=== PATIENT | female | born 1945 | race Caucasian/White ===

== ENCOUNTER 2017-07-25 08:10 | Inpatient (IN) | payer MEDICARE, MEDICAID ==
[2017-07-25] VITALS (11 sets, daily range): BP systolic 9–109; BP diastolic 50–77
[~2017-07-25] VITALS: Ht 172.7 cm; Wt 56.1 kg
[2017-07-25] MEDS: K, MAG and/or Phos replacement - Verify level? MC SCH (08:00)
[~2017-07-25 08:10] MED LIST: DULO-31 PO; MESA400C2 PO; NITR100C6 PO; SULF500T59 PO
[2017-07-25] MEDS ORDERED: normal saline 1000ML IV soln IVB ONE ×2 (08:45→11:05)
[2017-07-25 09:14] LABS: INR 1.1 INR; PARTIAL THROMBOPLASTIN TIME 36 SECONDS (22-32); PROTHROMBIN TIME 11.8 SECONDS (9.0-12.0)
[2017-07-25 09:20] LABS: ANION GAP 17 (8-16); CHLORIDE 100 MMOL/L (99-107); GLUCOSE 91 MG/DL (70-104); POTASSIUM 3.5 MMOL/L (3.5-5.1); SODIUM 134 MMOL/L (135-145); TOTAL CARBON DIOXIDE 16.7 MMOL/L (24-32)
[2017-07-25 09:21] LABS: ALANINE AMINOTRANSFERASE 56 U/L (12-78); ALBUMIN 2.5 G/DL (3.4-5.0); ALBUMIN/GLOBULIN RATIO 0.6 (1.1-1.5); ALKALINE PHOSPHATASE 166 IU/L (46-116); ASPARTATE AMINO TRANSFERASE 77 U/L (10-37); BILIRUBIN,TOTAL 0.6 MG/DL (0.1-1.0); BLOOD UREA NITROGEN 71 MG/DL (7-18); BUN/CREATININE RATIO 14.8 (6.6-38.0); CALCIUM 7.9 MG/DL (8.5-10.1); CREATININE 4.79 MG/DL (0.40-0.90); LIPASE 101 U/L (73-393); MAGNESIUM 1.8 MG/DL (1.5-2.4); TOTAL PROTEIN 6.6 G/DL (6.4-8.2); eGFR 9 ML/MIN
[2017-07-25 09:38] LABS: CLARITY,URINE CLOUDY (Clear); COLOR,URINE YELLOW (Yellow); GLUCOSE, URINE NEGATIVE (Neg); KETONES,URINE NEGATIVE (Neg); LEUKOCYTE ESTERASE ,URINE LARGE (Neg); NITRITES, URINE NEGATIVE (Neg); OCCULT BLOOD,URINE LARGE (Neg); PH,URINE 5.5 (4.8-8.0); PROTEIN,URINE 100 mg/dl (Neg); UROBILINOGEN,URINE 0.2 E.U/dL (0.2-1.0)
[2017-07-25 09:42] LABS: UA COLLECTION TYPE FOLEY CATH
[2017-07-25 09:43] LABS: WBC,URINE TNTC /HPF (0-4)
[2017-07-25 09:44] LABS: BACTERIA,URINE 4+ /HPF (Neg)
[2017-07-25 09:46] LABS: MUCUS STRANDS FEW /LPF (Neg); SQUAMOUS EPITHELIAL CELL,UR FEW /LPF (FEW)
[2017-07-25 09:47] LABS: HYALINE CASTS 0-3 /LPF (NEGATIVE); RENAL CELLS, URINE MODERATE /HPF
[2017-07-25 09:48] LABS: CELLULAR CAST 0-4 /LPF (NEGATIVE)
[2017-07-25 09:53] LABS: BASOPHILS % (AUTO) 0 % (0-1); EOSINOPHILS % (AUTO) 0.1 % (0-6); HEMATOCRIT 28.2 % (35.0-45.0); HEMOGLOBIN 9.8 g/dl (12.0-16.0); LYMPHOCYTES # (AUTO) 0.5 X10'3 (1.1-4.8); LYMPHOCYTES % (AUTO) 2.7 % (21-51); MEAN CORPUSCULAR HEMOGLOBIN 28.9 PG (27.0-31.0); MEAN CORPUSCULAR HGB CONC 34.7 % (33.0-36.5); MEAN CORPUSCULAR VOLUME 83.1 FL (78-98); MEAN PLATELET VOLUME 8.1 FL (7.4-10.4); MONOCYTES # (AUTO) 1.1 X10'3 (0-0.9); MONOCYTES % (AUTO) 5.6 % (2-12); NEUTROPHILS # (AUTO) 18.7 X10'3 (1.8-7.7); NEUTROPHILS % (AUTO) 91.6 % (42-75); PLATELET COUNT 103 X10'3 (140-440); RED BLOOD COUNT 3.39 X10'6 (4.20-5.60); RED CELL DISTRIBUTION WIDTH 16.6 % (11.5-14.5); WHITE BLOOD COUNT 20.4 X10'3 (4.5-11.0)
[2017-07-25 10:07] LABS: ANISOCYTOSIS 1+; PLATELET ESTIMATE DECREASED; TOTAL CELLS COUNTED 100
[2017-07-25 10:08] LABS: BURR CELLS 3+; SCHISTOCYTES FEW
[2017-07-25 10:09] LABS: TOXIC GRANULATION 2+
[2017-07-25] MEDS ORDERED: piperacillin/tazo 3.375gm/50ml 50 ML IV ONE ×2 (11:05→21:00)
[2017-07-25] MEDS ORDERED: CefTRIAXone 2gm/NS 100ml IVPB 100 ML IV ONE (11:05)
[2017-07-25] MEDS ORDERED: magnesium 2GM in 50ml NS 50 ML IV PRN (11:35)
[2017-07-25] MEDS ORDERED: ondansetron/PF 4mg/2ml inj IV PRN (11:35)
[2017-07-25] MEDS ORDERED: acetaminophen 325mg tablet PO PRN (11:35)
[2017-07-25] MEDS ORDERED: potassium Cl 20 mEq SR tablet PO PRN (11:35)
[2017-07-25] MEDS ORDERED: magnesium 4gm in 100ml NS 100 ML IV PRN (11:35)
[2017-07-25] MEDS ORDERED: magnesium hydroxide 30ml (MOM) UD suspension PO PRN (11:35)
[2017-07-25] MEDS ORDERED: magnesium Cl slow-release 64mg tablet PO PRN (11:35)
[2017-07-25] MEDS ORDERED: BUDE3CAP8 PO (12:24)
[2017-07-25] MEDS ORDERED: POLY255P2 PO (12:24)
[2017-07-25] MEDS ORDERED: LOPE2CAP PO (12:24)
[2017-07-25] MEDS ORDERED: aspirin 81mg tab.chew PO ONE (12:25)
[2017-07-25] MEDS: pantoprazole 40 MG vial IV SCH (15:14)
[2017-07-25] MEDS: normal saline 1000ml 1,000 ML IV SCH (15:18)
[2017-07-25] MEDS: heparin, porcine 5000 units/ml vial SQ SCH (16:00)
[2017-07-25] MEDS ORDERED: albumin (human) 25% 100 ML IV solution IV ONE (16:10)
[2017-07-25] MEDS ORDERED: diphenhydrAMINE 50 mg/ml inj IV ONE (20:40)
[2017-07-25] MEDS ORDERED: vancomycin/NS 1 GM ADD-VANTAGE 250 ML IV PRN (21:10)
[2017-07-25] MEDS ORDERED: piperacillin-tazo 2.25gm/50ml 50 ML IV SCH (21:10)
[2017-07-25] MEDS: piperacillin-tazo 2.25gm/50ml 50 ML IV SCH (21:53)
[2017-07-25] MEDS ORDERED: vancomycin/NS 1 GM ADD-VANTAGE 250 ML IV ONE (22:00)
[2017-07-26] VITALS (27 sets, daily range): BP systolic 87–137; BP diastolic 44–89
[2017-07-26] MEDS: normal saline 1000ml 1,000 ML IV SCH ×3 (00:51→17:26)
[2017-07-26] MEDS: heparin, porcine 5000 units/ml vial SQ SCH ×3 (00:58→20:58)
[2017-07-26] MEDS: piperacillin-tazo 2.25gm/50ml 50 ML IV SCH ×4 (02:51→20:25)
[2017-07-26] MEDS: VANCOMYCIN LEVEL IV SCH (03:00)
[2017-07-26 03:04] LABS: BASOPHILS % (AUTO) 0 % (0-1); EOSINOPHILS # (AUTO) 0.1 X10'3 (0-0.9); HEMATOCRIT 27.5 % (35.0-45.0); HEMOGLOBIN 9.4 g/dl (12.0-16.0); LYMPHOCYTES # (AUTO) 0.4 X10'3 (1.1-4.8); LYMPHOCYTES % (AUTO) 2.7 % (21-51); MEAN CORPUSCULAR HEMOGLOBIN 28.7 PG (27.0-31.0); MEAN CORPUSCULAR VOLUME 84.4 FL (78-98); MEAN PLATELET VOLUME 8.1 FL (7.4-10.4); MONOCYTES # (AUTO) 0.5 X10'3 (0-0.9); MONOCYTES % (AUTO) 3.5 % (2-12); NEUTROPHILS # (AUTO) 13.3 X10'3 (1.8-7.7); NEUTROPHILS % (AUTO) 92.8 % (42-75); PLATELET COUNT 108 X10'3 (140-440); RED BLOOD COUNT 3.26 X10'6 (4.20-5.60); RED CELL DISTRIBUTION WIDTH 16.7 % (11.5-14.5); WHITE BLOOD COUNT 14.4 X10'3 (4.5-11.0)
[2017-07-26 03:20] LABS: ALANINE AMINOTRANSFERASE 40 U/L (12-78); ALBUMIN 2.2 G/DL (3.4-5.0); ALBUMIN/GLOBULIN RATIO 0.6 (1.1-1.5); ALKALINE PHOSPHATASE 128 IU/L (46-116); ANION GAP 21 (8-16); ASPARTATE AMINO TRANSFERASE 42 U/L (10-37); BILIRUBIN,TOTAL 0.5 MG/DL (0.1-1.0); BLOOD UREA NITROGEN 66 MG/DL (7-18); BUN/CREATININE RATIO 14.9 (6.6-38.0); CALCIUM 7.3 MG/DL (8.5-10.1); CHLORIDE 110 MMOL/L (99-107); CREATININE 4.43 MG/DL (0.40-0.90); GLUCOSE 100 MG/DL (70-104); MAGNESIUM 1.7 MG/DL (1.5-2.4); PHOSPHORUS 4.2 MG/DL (2.3-4.5); SODIUM 143 MMOL/L (135-145); TOTAL PROTEIN 5.6 G/DL (6.4-8.2); VANCOMYCIN,RANDOM 19.3 UG/ML; eGFR 10 ML/MIN
[2017-07-26 03:24] LABS: POTASSIUM 2.8 MMOL/L (3.5-5.1); TOTAL CARBON DIOXIDE 11.9 MMOL/L (24-32)
[2017-07-26] MEDS ORDERED: potassium Cl 40MEQ/250ML bag 250 ML IV PRN (03:35)
[2017-07-26] MEDS ORDERED: potassium Cl 40MEQ/250ML bag 500 ML IV ONE (04:11)
[2017-07-26 04:19] LABS: TOTAL CELLS COUNTED 100
[2017-07-26 04:20] LABS: ANISOCYTOSIS 1+; BURR CELLS 3+; PLATELET ESTIMATE DECREASED
[2017-07-26] MEDS: potassium Cl 40MEQ/250ML bag 250 ML IV PRN ×2 (04:20→07:13)
[2017-07-26 04:21] LABS: TOXIC GRANULATION 2+
[2017-07-26 07:26] LABS: OXYGEN SATURATION (MIXED VEN) 77.6 % (60-80); PO2 MIXED VENOUS (TEMP COR) 43.5 mmHg (35-46)
[2017-07-26] MEDS: K, MAG and/or Phos replacement - Verify level? MC SCH (08:00)
[2017-07-26] MEDS: pantoprazole 40 MG vial IV SCH (09:20)
[2017-07-26] MEDS ORDERED: dextrose 50%-water 50ml dispensing syringe IV PRN ×2 (12:50)
[2017-07-26] MEDS ORDERED: glucagon, human recombinant 1mg kit SUBCUT PRN (12:50)
[2017-07-26] MEDS ORDERED: dextrose ORAL solution 15 GM/59 ML bottle PO PRN ×2 (12:50)
[2017-07-26] MEDS ORDERED: iohexol 300 MG/1 ML 50ml polymer ONE (13:03)
[2017-07-26 13:16] LABS: PARTIAL THROMBOPLASTIN TIME 37 SECONDS (22-32)
[2017-07-26] MEDS ORDERED: ringers solution, lacted 1,000 ML IV SCH ×2 (14:34→16:51)
[2017-07-26] MEDS ORDERED: hydrALAZINE 20mg/ml inj. IV PRN (14:35)
[2017-07-26] MEDS ORDERED: fentaNYL/PF 50MCG/1 ML 2ML syringe IV PRN ×2 (14:35)
[2017-07-26] MEDS ORDERED: ondansetron/PF 4mg/2ml inj IV PRN ×2 (14:35→16:55)
[2017-07-26] MEDS ORDERED: morphine 2 MG/ML inj. syringe IV PRN ×4 (14:35→16:55)
[2017-07-26] MEDS ORDERED: labetalol 5mg/ml 20ml inj. IV PRN (14:35)
[2017-07-26] MEDS ORDERED: desflurane 240ml liquid inh. IH ONE (15:45)
[2017-07-26] MEDS ORDERED: fentaNYL/PF 50MCG/1 ML 2ML syringe ONE (16:04)
[2017-07-26] MEDS ORDERED: midazolam 2 mg/2 ml injection ONE (16:04)
[2017-07-26] MEDS ORDERED: propofol inj 20 ML IV ONE (16:05)
[2017-07-26] MEDS ORDERED: LIDOcaine 2% (20mg/ml) 5ml vial ONE (16:05)
[2017-07-26] MEDS ORDERED: meperidine/PF 50mg/ml syringe IV PRN ×3 (16:55)
[2017-07-26] MEDS ORDERED: proCHLORperazine 10 MG/2 ml inj IV PRN (16:55)
[2017-07-26] MEDS: lactobacillus rhamnosus 10,000 MMU CELLS/CAPSULE PO SCH (17:30)
[2017-07-27] VITALS (24 sets, daily range): BP systolic 96–122; BP diastolic 64–86
[2017-07-27] MEDS: piperacillin-tazo 2.25gm/50ml 50 ML IV SCH ×2 (02:29→07:56)
[2017-07-27] MEDS: VANCOMYCIN LEVEL IV SCH (03:00)
[2017-07-27 03:38] LABS: BASOPHILS % (AUTO) 0 % (0-1); EOSINOPHILS # (AUTO) 0.2 X10'3 (0-0.9); EOSINOPHILS % (AUTO) 1.4 % (0-6); HEMATOCRIT 26.8 % (35.0-45.0); HEMOGLOBIN 9.1 g/dl (12.0-16.0); LYMPHOCYTES # (AUTO) 0.6 X10'3 (1.1-4.8); LYMPHOCYTES % (AUTO) 5.9 % (21-51); MEAN CORPUSCULAR HEMOGLOBIN 28.4 PG (27.0-31.0); MEAN CORPUSCULAR HGB CONC 33.7 % (33.0-36.5); MEAN CORPUSCULAR VOLUME 84.1 FL (78-98); MEAN PLATELET VOLUME 8.5 FL (7.4-10.4); MONOCYTES # (AUTO) 0.4 X10'3 (0-0.9); MONOCYTES % (AUTO) 3.4 % (2-12); NEUTROPHILS # (AUTO) 9.5 X10'3 (1.8-7.7); NEUTROPHILS % (AUTO) 89.3 % (42-75); PLATELET COUNT 112 X10'3 (140-440); RED BLOOD COUNT 3.19 X10'6 (4.20-5.60); RED CELL DISTRIBUTION WIDTH 16.4 % (11.5-14.5); WHITE BLOOD COUNT 10.6 X10'3 (4.5-11.0)
[2017-07-27 03:59] LABS: ALANINE AMINOTRANSFERASE 35 U/L (12-78); ALBUMIN 1.9 G/DL (3.4-5.0); ALBUMIN/GLOBULIN RATIO 0.5 (1.1-1.5); ALKALINE PHOSPHATASE 205 IU/L (46-116); ANION GAP 18 (8-16); ASPARTATE AMINO TRANSFERASE 25 U/L (10-37); BILIRUBIN,TOTAL 0.6 MG/DL (0.1-1.0); BLOOD UREA NITROGEN 58 MG/DL (7-18); BUN/CREATININE RATIO 14.1 (6.6-38.0); CALCIUM 7.5 MG/DL (8.5-10.1); CHLORIDE 112 MMOL/L (99-107); CREATININE 4.11 MG/DL (0.40-0.90); GLUCOSE 104 MG/DL (70-104); MAGNESIUM 1.7 MG/DL (1.5-2.4); PHOSPHORUS 4.1 MG/DL (2.3-4.5); POTASSIUM 3.3 MMOL/L (3.5-5.1); SODIUM 144 MMOL/L (135-145); TOTAL PROTEIN 5.5 G/DL (6.4-8.2); eGFR 11 ML/MIN
[2017-07-27 04:11] LABS: TOTAL CARBON DIOXIDE 14.3 MMOL/L (24-32)
[2017-07-27] MEDS: normal saline 1000ml 1,000 ML IV SCH (07:28)
[2017-07-27] MEDS: pantoprazole 40 MG vial IV SCH (07:55)
[2017-07-27] MEDS: heparin, porcine 5000 units/ml vial SQ SCH ×2 (07:55→19:23)
[2017-07-27] MEDS: lactobacillus rhamnosus 10,000 MMU CELLS/CAPSULE PO SCH ×2 (07:56→19:21)
[2017-07-27] MEDS: K, MAG and/or Phos replacement - Verify level? MC SCH (08:00)
[2017-07-27] MEDS ORDERED: vancomycin/NS 1 GM ADD-VANTAGE 250 ML IV ONE (09:25)
[2017-07-27] MEDS ORDERED: levoFLOXACIN-Levaquin 750MG/D5 150 ML IV ONE (12:30)
[2017-07-27] MEDS: acetaminophen 325mg tablet PO PRN ×2 (13:15→19:21)
[2017-07-28] VITALS (24 sets, daily range): BP systolic 106–136; BP diastolic 63–93
[2017-07-28] MEDS: normal saline 1000ml 1,000 ML IV SCH (01:53)
[2017-07-28 03:48] LABS: MEAN CORPUSCULAR HEMOGLOBIN 28.7 PG (27.0-31.0); MONOCYTES # (AUTO) 0.8 X10'3 (0-0.9)
[2017-07-28 03:53] LABS: ALANINE AMINOTRANSFERASE 34 U/L (12-78); ALBUMIN 1.9 G/DL (3.4-5.0); ALBUMIN/GLOBULIN RATIO 0.5 (1.1-1.5); ALKALINE PHOSPHATASE 194 IU/L (46-116); ANION GAP 14 (8-16); ASPARTATE AMINO TRANSFERASE 18 U/L (10-37); BASOPHILS % (AUTO) 0.1 % (0-1); BILIRUBIN,TOTAL 0.5 MG/DL (0.1-1.0); BLOOD UREA NITROGEN 43 MG/DL (7-18); BUN/CREATININE RATIO 13.2 (6.6-38.0); CALCIUM 7.7 MG/DL (8.5-10.1); CHLORIDE 113 MMOL/L (99-107); CREATININE 3.26 MG/DL (0.40-0.90); EOSINOPHILS # (AUTO) 0.6 X10'3 (0-0.9); EOSINOPHILS % (AUTO) 3.9 % (0-6); GLUCOSE 104 MG/DL (70-104); HEMATOCRIT 29.6 % (35.0-45.0); HEMOGLOBIN 10.1 g/dl (12.0-16.0); LYMPHOCYTES # (AUTO) 0.7 X10'3 (1.1-4.8); LYMPHOCYTES % (AUTO) 4.3 % (21-51); MAGNESIUM 1.4 MG/DL (1.5-2.4); MEAN CORPUSCULAR HGB CONC 34.3 % (33.0-36.5); MEAN CORPUSCULAR VOLUME 83.7 FL (78-98); MEAN PLATELET VOLUME 8.5 FL (7.4-10.4); MONOCYTES % (AUTO) 4.9 % (2-12); NEUTROPHILS # (AUTO) 13.2 X10'3 (1.8-7.7); NEUTROPHILS % (AUTO) 86.8 % (42-75); PHOSPHORUS 3.8 MG/DL (2.3-4.5); PLATELET COUNT 145 X10'3 (140-440); POTASSIUM 3.4 MMOL/L (3.5-5.1); RED BLOOD COUNT 3.53 X10'6 (4.20-5.60); RED CELL DISTRIBUTION WIDTH 16.7 % (11.5-14.5); SODIUM 142 MMOL/L (135-145); TOTAL CARBON DIOXIDE 15.1 MMOL/L (24-32); TOTAL PROTEIN 5.8 G/DL (6.4-8.2); WHITE BLOOD COUNT 15.2 X10'3 (4.5-11.0); eGFR 14 ML/MIN
[2017-07-28] MEDS: potassium Cl 20 mEq SR tablet PO PRN (04:49)
[2017-07-28] MEDS: pantoprazole 40mg Tablet.DR PO SCH (08:21)
[2017-07-28] MEDS: heparin, porcine 5000 units/ml vial SQ SCH ×2 (08:21→20:28)
[2017-07-28] MEDS: lactobacillus rhamnosus 10,000 MMU CELLS/CAPSULE PO SCH ×2 (08:21→18:41)
[2017-07-28] MEDS ORDERED: temazepam 15mg capsule PO ONE (21:00)
[2017-07-29] VITALS (15 sets, daily range): BP systolic 104–132; BP diastolic 69–93
[2017-07-29 05:27] LABS: BASOPHILS % (AUTO) 0.1 % (0-1); EOSINOPHILS # (AUTO) 0.3 X10'3 (0-0.9); EOSINOPHILS % (AUTO) 2.4 % (0-6); HEMATOCRIT 31.7 % (35.0-45.0); HEMOGLOBIN 10.8 g/dl (12.0-16.0); LYMPHOCYTES # (AUTO) 0.9 X10'3 (1.1-4.8); LYMPHOCYTES % (AUTO) 6.8 % (21-51); MEAN CORPUSCULAR HEMOGLOBIN 28.4 PG (27.0-31.0); MEAN CORPUSCULAR VOLUME 83.4 FL (78-98); MEAN PLATELET VOLUME 8.6 FL (7.4-10.4); MONOCYTES # (AUTO) 0.7 X10'3 (0-0.9); MONOCYTES % (AUTO) 5.2 % (2-12); NEUTROPHILS # (AUTO) 11.8 X10'3 (1.8-7.7); NEUTROPHILS % (AUTO) 85.5 % (42-75); PLATELET COUNT 186 X10'3 (140-440); RED CELL DISTRIBUTION WIDTH 16.5 % (11.5-14.5); WHITE BLOOD COUNT 13.8 X10'3 (4.5-11.0)
[2017-07-29 06:48] LABS: ALANINE AMINOTRANSFERASE 36 U/L (12-78); ALBUMIN 2.3 G/DL (3.4-5.0); ALBUMIN/GLOBULIN RATIO 0.6 (1.1-1.5); ALKALINE PHOSPHATASE 174 IU/L (46-116); ANION GAP 16 (8-16); ASPARTATE AMINO TRANSFERASE 20 U/L (10-37); BILIRUBIN,TOTAL 0.4 MG/DL (0.1-1.0); BLOOD UREA NITROGEN 37 MG/DL (7-18); BUN/CREATININE RATIO 12.6 (6.6-38.0); CALCIUM 7.8 MG/DL (8.5-10.1); CHLORIDE 110 MMOL/L (99-107); CREATININE 2.93 MG/DL (0.40-0.90); GLUCOSE 101 MG/DL (70-104); MAGNESIUM 1.3 MG/DL (1.5-2.4); PHOSPHORUS 3.9 MG/DL (2.3-4.5); POTASSIUM 3.4 MMOL/L (3.5-5.1); SODIUM 141 MMOL/L (135-145); TOTAL CARBON DIOXIDE 15.5 MMOL/L (24-32); TOTAL PROTEIN 6.3 G/DL (6.4-8.2); eGFR 16 ML/MIN
[2017-07-29] MEDS: K, MAG and/or Phos replacement - Verify level? MC SCH ×2 (06:48→08:00)
[2017-07-29] MEDS: levoFLOXACIN-Levaquin 500mg/D5 100 ML IV SCH (08:47)
[2017-07-29] MEDS: potassium Cl 20 mEq SR tablet PO PRN ×3 (08:47→19:36)
[2017-07-29] MEDS: lactobacillus rhamnosus 10,000 MMU CELLS/CAPSULE PO SCH ×2 (08:47→17:04)
[2017-07-29] MEDS: heparin, porcine 5000 units/ml vial SQ SCH ×2 (08:48→19:30)
[2017-07-29] MEDS: pantoprazole 40mg Tablet.DR PO SCH (08:58)
[2017-07-29] MEDS: acetaminophen 325mg tablet PO PRN ×2 (08:59→17:11)
[2017-07-29] MEDS ORDERED: magnesium 2GM in 50ml NS 50 ML IV PRN (09:25)
[2017-07-29] MEDS ORDERED: magnesium 4gm in 100ml NS 100 ML IV PRN (09:25)
[2017-07-29] MEDS ORDERED: POTASSIUM 40MEQ/500ML NS ***PERIPHERAL LINE REPLACE IV PRN (14:40)
[2017-07-30] VITALS: BP 121/76
[2017-07-30 04:46] LABS: BASOPHILS % (AUTO) 0.2 % (0-1); EOSINOPHILS # (AUTO) 0.3 X10'3 (0-0.9); EOSINOPHILS % (AUTO) 2.5 % (0-6); HEMATOCRIT 31.3 % (35.0-45.0); HEMOGLOBIN 10.6 g/dl (12.0-16.0); LYMPHOCYTES # (AUTO) 0.9 X10'3 (1.1-4.8); LYMPHOCYTES % (AUTO) 6.7 % (21-51); MEAN CORPUSCULAR HEMOGLOBIN 28.4 PG (27.0-31.0); MEAN CORPUSCULAR HGB CONC 33.7 % (33.0-36.5); MEAN CORPUSCULAR VOLUME 84.2 FL (78-98); MONOCYTES # (AUTO) 0.6 X10'3 (0-0.9); MONOCYTES % (AUTO) 4.5 % (2-12); NEUTROPHILS # (AUTO) 11.9 X10'3 (1.8-7.7); NEUTROPHILS % (AUTO) 86.1 % (42-75); PLATELET COUNT 275 X10'3 (140-440); RED BLOOD COUNT 3.72 X10'6 (4.20-5.60); RED CELL DISTRIBUTION WIDTH 16.4 % (11.5-14.5); WHITE BLOOD COUNT 13.8 X10'3 (4.5-11.0)
[2017-07-30 05:09] LABS: ALANINE AMINOTRANSFERASE 39 U/L (12-78); ALBUMIN 2.5 G/DL (3.4-5.0); ALBUMIN/GLOBULIN RATIO 0.6 (1.1-1.5); ALKALINE PHOSPHATASE 158 IU/L (46-116); ANION GAP 16 (8-16); ASPARTATE AMINO TRANSFERASE 27 U/L (10-37); BILIRUBIN,TOTAL 0.3 MG/DL (0.1-1.0); BLOOD UREA NITROGEN 29 MG/DL (7-18); BUN/CREATININE RATIO 11.3 (6.6-38.0); CALCIUM 8.4 MG/DL (8.5-10.1); CHLORIDE 110 MMOL/L (99-107); CREATININE 2.57 MG/DL (0.40-0.90); GLUCOSE 111 MG/DL (70-104); MAGNESIUM 2.9 MG/DL (1.5-2.4); PHOSPHORUS 3.9 MG/DL (2.3-4.5); POTASSIUM 4.1 MMOL/L (3.5-5.1); SODIUM 142 MMOL/L (135-145); TOTAL CARBON DIOXIDE 16.3 MMOL/L (24-32); TOTAL PROTEIN 6.7 G/DL (6.4-8.2); eGFR 18 ML/MIN
[2017-07-30 07:00] VITALS: BP 110/71
[2017-07-30] MEDS: acetaminophen 325mg tablet PO PRN ×3 (07:33→21:32)
[2017-07-30] MEDS: pantoprazole 40mg Tablet.DR PO SCH (07:34)
[2017-07-30] MEDS: lactobacillus rhamnosus 10,000 MMU CELLS/CAPSULE PO SCH ×2 (07:34→16:52)
[2017-07-30] MEDS: heparin, porcine 5000 units/ml vial SQ SCH ×2 (07:34→19:31)
[2017-07-30] MEDS: K, MAG and/or Phos replacement - Verify level? MC SCH (07:40)
[2017-07-30 11:00] VITALS: BP 113/73
[2017-07-30 19:00] VITALS: BP 115/75
[2017-07-30] MEDS ORDERED: temazepam 15mg capsule PO PRN (20:55)
[2017-07-31] VITALS: BP 103/63
[2017-07-31 06:47] LABS: BASOPHILS % (AUTO) 0.3 % (0-1); EOSINOPHILS # (AUTO) 0.4 X10'3 (0-0.9); EOSINOPHILS % (AUTO) 3.1 % (0-6); HEMATOCRIT 31.6 % (35.0-45.0); HEMOGLOBIN 10.8 g/dl (12.0-16.0); LYMPHOCYTES # (AUTO) 1.3 X10'3 (1.1-4.8); LYMPHOCYTES % (AUTO) 9.7 % (21-51); MEAN CORPUSCULAR HEMOGLOBIN 28.5 PG (27.0-31.0); MEAN CORPUSCULAR VOLUME 83.9 FL (78-98); MEAN PLATELET VOLUME 7.5 FL (7.4-10.4); MONOCYTES # (AUTO) 0.6 X10'3 (0-0.9); MONOCYTES % (AUTO) 4.5 % (2-12); NEUTROPHILS # (AUTO) 10.6 X10'3 (1.8-7.7); NEUTROPHILS % (AUTO) 82.4 % (42-75); PLATELET COUNT 368 X10'3 (140-440); RED BLOOD COUNT 3.77 X10'6 (4.20-5.60); RED CELL DISTRIBUTION WIDTH 16.7 % (11.5-14.5); WHITE BLOOD COUNT 12.9 X10'3 (4.5-11.0)
[2017-07-31 07:10] LABS: ALANINE AMINOTRANSFERASE 39 U/L (12-78); ALBUMIN 2.7 G/DL (3.4-5.0); ALBUMIN/GLOBULIN RATIO 0.6 (1.1-1.5); ALKALINE PHOSPHATASE 143 IU/L (46-116); ANION GAP 14 (8-16); ASPARTATE AMINO TRANSFERASE 18 U/L (10-37); BILIRUBIN,TOTAL 0.4 MG/DL (0.1-1.0); BLOOD UREA NITROGEN 25 MG/DL (7-18); BUN/CREATININE RATIO 11.1 (6.6-38.0); CALCIUM 8.2 MG/DL (8.5-10.1); CHLORIDE 110 MMOL/L (99-107); CREATININE 2.25 MG/DL (0.40-0.90); GLUCOSE 106 MG/DL (70-104); PHOSPHORUS 4.1 MG/DL (2.3-4.5); POTASSIUM 3.7 MMOL/L (3.5-5.1); SODIUM 141 MMOL/L (135-145); TOTAL CARBON DIOXIDE 16.8 MMOL/L (24-32); eGFR 21 ML/MIN
[2017-07-31 07:30] VITALS: BP 97/64
[2017-07-31] MEDS: levoFLOXACIN-Levaquin 500mg/D5 100 ML IV SCH (08:00)
[2017-07-31] MEDS: K, MAG and/or Phos replacement - Verify level? MC SCH (08:00)
[2017-07-31] MEDS: heparin, porcine 5000 units/ml vial SQ SCH ×2 (08:00→20:00)
[2017-07-31] MEDS: lactobacillus rhamnosus 10,000 MMU CELLS/CAPSULE PO SCH ×2 (10:01→17:56)
[2017-07-31] MEDS: pantoprazole 40mg Tablet.DR PO SCH (10:02)
[2017-07-31 11:00] VITALS: BP 103/66
[2017-07-31 13:14] LABS: C DIFFICILE TOXINS A&B NEGATIVE (Neg)
[2017-07-31 13:15] LABS: C DIFF ANTIGEN NEGATIVE (NEGATIVE); C DIFF SPECIMEN=DIARRHEA? ACCEPTABLE
[2017-07-31 19:00] VITALS: BP 107/68
[2017-08-01] VITALS: BP 102/65
[2017-08-01 04:00] VITALS: BP 108/69
[2017-08-01 05:14] LABS: BASOPHILS % (AUTO) 0.1 % (0-1); EOSINOPHILS # (AUTO) 0.4 X10'3 (0-0.9); EOSINOPHILS % (AUTO) 3.7 % (0-6); HEMATOCRIT 28.7 % (35.0-45.0); HEMOGLOBIN 9.8 g/dl (12.0-16.0); LYMPHOCYTES # (AUTO) 1.2 X10'3 (1.1-4.8); LYMPHOCYTES % (AUTO) 10.3 % (21-51); MEAN CORPUSCULAR HEMOGLOBIN 28.6 PG (27.0-31.0); MEAN CORPUSCULAR HGB CONC 34.1 % (33.0-36.5); MEAN CORPUSCULAR VOLUME 83.8 FL (78-98); MEAN PLATELET VOLUME 7.6 FL (7.4-10.4); MONOCYTES # (AUTO) 0.6 X10'3 (0-0.9); MONOCYTES % (AUTO) 5.2 % (2-12); NEUTROPHILS # (AUTO) 9.5 X10'3 (1.8-7.7); NEUTROPHILS % (AUTO) 80.7 % (42-75); PLATELET COUNT 360 X10'3 (140-440); RED BLOOD COUNT 3.42 X10'6 (4.20-5.60); WHITE BLOOD COUNT 11.8 X10'3 (4.5-11.0)
[2017-08-01 05:41] LABS: ALANINE AMINOTRANSFERASE 32 U/L (12-78); ALBUMIN 2.5 G/DL (3.4-5.0); ALBUMIN/GLOBULIN RATIO 0.6 (1.1-1.5); ALKALINE PHOSPHATASE 123 IU/L (46-116); ANION GAP 14 (8-16); ASPARTATE AMINO TRANSFERASE 15 U/L (10-37); BILIRUBIN,TOTAL 0.3 MG/DL (0.1-1.0); BLOOD UREA NITROGEN 22 MG/DL (7-18); BUN/CREATININE RATIO 10.9 (6.6-38.0); CALCIUM 7.8 MG/DL (8.5-10.1); CHLORIDE 110 MMOL/L (99-107); CREATININE 2.01 MG/DL (0.40-0.90); GLUCOSE 94 MG/DL (70-104); MAGNESIUM 1.6 MG/DL (1.5-2.4); PHOSPHORUS 3.9 MG/DL (2.3-4.5); POTASSIUM 3.9 MMOL/L (3.5-5.1); SODIUM 140 MMOL/L (135-145); TOTAL CARBON DIOXIDE 15.9 MMOL/L (24-32); TOTAL PROTEIN 6.5 G/DL (6.4-8.2); eGFR 24 ML/MIN
[2017-08-01 07:33] VITALS: BP 110/71
[2017-08-01] MEDS: K, MAG and/or Phos replacement - Verify level? MC SCH (08:00)
[2017-08-01] MEDS: heparin, porcine 5000 units/ml vial SQ SCH ×2 (08:00→20:00)
[2017-08-01] MEDS: pantoprazole 40mg Tablet.DR PO SCH (09:10)
[2017-08-01] MEDS: lactobacillus rhamnosus 10,000 MMU CELLS/CAPSULE PO SCH ×2 (09:10→17:49)
[2017-08-01] MEDS: acetaminophen 325mg tablet PO PRN ×2 (10:38→19:16)
[2017-08-01 11:00] VITALS: BP 107/71
[2017-08-01 19:00] VITALS: BP 112/75
[2017-08-01] MEDS: potassium CL 20mEq in D5-1/2NS 1,000 ML IV SCH (19:57)
[2017-08-02] VITALS: BP 100/62
[2017-08-02 05:20] LABS: BASOPHILS # (AUTO) 0.1 X10'3 (0-0.2); BASOPHILS % (AUTO) 0.5 % (0-1); EOSINOPHILS # (AUTO) 0.4 X10'3 (0-0.9); EOSINOPHILS % (AUTO) 3.3 % (0-6); HEMATOCRIT 29.2 % (35.0-45.0); HEMOGLOBIN 9.7 g/dl (12.0-16.0); LYMPHOCYTES # (AUTO) 1.2 X10'3 (1.1-4.8); LYMPHOCYTES % (AUTO) 9.2 % (21-51); MEAN CORPUSCULAR HEMOGLOBIN 28.4 PG (27.0-31.0); MEAN CORPUSCULAR HGB CONC 33.3 % (33.0-36.5); MEAN CORPUSCULAR VOLUME 85.2 FL (78-98); MEAN PLATELET VOLUME 7.4 FL (7.4-10.4); MONOCYTES # (AUTO) 0.7 X10'3 (0-0.9); MONOCYTES % (AUTO) 5.1 % (2-12); NEUTROPHILS # (AUTO) 10.7 X10'3 (1.8-7.7); NEUTROPHILS % (AUTO) 81.9 % (42-75); PLATELET COUNT 387 X10'3 (140-440); RED BLOOD COUNT 3.42 X10'6 (4.20-5.60); RED CELL DISTRIBUTION WIDTH 16.5 % (11.5-14.5); WHITE BLOOD COUNT 13.1 X10'3 (4.5-11.0)
[2017-08-02] MEDS: potassium CL 20mEq in D5-1/2NS 1,000 ML IV SCH ×3 (05:22→23:50)
[2017-08-02 05:27] LABS: ALANINE AMINOTRANSFERASE 29 U/L (12-78); ALBUMIN 2.4 G/DL (3.4-5.0); ALBUMIN/GLOBULIN RATIO 0.6 (1.1-1.5); ALKALINE PHOSPHATASE 117 IU/L (46-116); ANION GAP 13 (8-16); ASPARTATE AMINO TRANSFERASE 12 U/L (10-37); BILIRUBIN,TOTAL 0.3 MG/DL (0.1-1.0); BLOOD UREA NITROGEN 21 MG/DL (7-18); BUN/CREATININE RATIO 10.6 (6.6-38.0); CALCIUM 8.1 MG/DL (8.5-10.1); CHLORIDE 110 MMOL/L (99-107); CREATININE 1.99 MG/DL (0.40-0.90); GLUCOSE 104 MG/DL (70-104); MAGNESIUM 1.5 MG/DL (1.5-2.4); PHOSPHORUS 3.7 MG/DL (2.3-4.5); SODIUM 140 MMOL/L (135-145); TOTAL CARBON DIOXIDE 17.4 MMOL/L (24-32); TOTAL PROTEIN 6.4 G/DL (6.4-8.2); eGFR 24 ML/MIN
[2017-08-02 07:00] VITALS: BP 116/84
[2017-08-02] MEDS: heparin, porcine 5000 units/ml vial SQ SCH ×2 (08:00→19:52)
[2017-08-02] MEDS: K, MAG and/or Phos replacement - Verify level? MC SCH (08:00)
[2017-08-02] MEDS: lactobacillus rhamnosus 10,000 MMU CELLS/CAPSULE PO SCH ×2 (08:44→17:04)
[2017-08-02] MEDS: pantoprazole 40mg Tablet.DR PO SCH (08:44)
[2017-08-02 11:00] VITALS: BP 108/67
[2017-08-02] MEDS: sulfamethoxazole/trimethoprim DS (800/160mg) tablet PO SCH ×2 (11:36→19:50)
[2017-08-02 20:00] VITALS: BP 103/62
[2017-08-02 22:02] LABS: CLARITY,URINE CLOUDY (Clear); GLUCOSE, URINE NEGATIVE (Neg); KETONES,URINE NEGATIVE (Neg); LEUKOCYTE ESTERASE ,URINE MODERATE (Neg); NITRITES, URINE NEGATIVE (Neg); OCCULT BLOOD,URINE LARGE (Neg); PH,URINE 5.5 (4.8-8.0); PROTEIN,URINE TRACE mg/dl (Neg); UROBILINOGEN,URINE 0.2 E.U/dL (0.2-1.0)
[2017-08-02 22:03] LABS: COLOR,URINE YELLOW (Yellow); UA COLLECTION TYPE VOIDED
[2017-08-02 22:11] LABS: WBC,URINE 50-100 /HPF (0-4)
[2017-08-02 22:13] LABS: RBC,URINE 20-50 /HPF (0-2)
[2017-08-02 22:14] LABS: BACTERIA,URINE FEW /HPF (Neg); MUCUS STRANDS FEW /LPF (Neg); TRANSITIONAL EPI CELLS,URINE FEW /HPF; WBC CLUMPS,URINE MODERATE /HPF (NEGATIVE)
[2017-08-02 22:15] LABS: SQUAMOUS EPITHELIAL CELL,UR MODERATE /LPF (FEW); YEAST MANY /HPF (NEGATIVE)
[2017-08-03] VITALS: BP 121/76
[2017-08-03 07:00] VITALS: BP 107/70
[2017-08-03] MEDS: heparin, porcine 5000 units/ml vial SQ SCH (07:54)
[2017-08-03] MEDS: lactobacillus rhamnosus 10,000 MMU CELLS/CAPSULE PO SCH (07:54)
[2017-08-03] MEDS: pantoprazole 40mg Tablet.DR PO SCH (07:55)
[2017-08-03] MEDS: sulfamethoxazole/trimethoprim DS (800/160mg) tablet PO SCH (07:55)
[2017-08-03] MEDS: K, MAG and/or Phos replacement - Verify level? MC SCH (08:00)
[2017-08-03 09:41] LABS: ALANINE AMINOTRANSFERASE 20 U/L (12-78); ALBUMIN 2.5 G/DL (3.4-5.0); ALBUMIN/GLOBULIN RATIO 0.6 (1.1-1.5); ALKALINE PHOSPHATASE 115 IU/L (46-116); ANION GAP 14 (8-16); ASPARTATE AMINO TRANSFERASE 12 U/L (10-37); BILIRUBIN,TOTAL 0.3 MG/DL (0.1-1.0); BLOOD UREA NITROGEN 17 MG/DL (7-18); BUN/CREATININE RATIO 8.4 (6.6-38.0); CALCIUM 7.9 MG/DL (8.5-10.1); CHLORIDE 110 MMOL/L (99-107); CREATININE 2.02 MG/DL (0.40-0.90); GLUCOSE 77 MG/DL (70-104); MAGNESIUM 1.3 MG/DL (1.5-2.4); PHOSPHORUS 3.2 MG/DL (2.3-4.5); POTASSIUM 3.6 MMOL/L (3.5-5.1); SODIUM 141 MMOL/L (135-145); TOTAL PROTEIN 6.6 G/DL (6.4-8.2); eGFR 24 ML/MIN
[2017-08-03 09:49] LABS: BASOPHILS # (AUTO) 0.1 X10'3 (0-0.2); BASOPHILS % (AUTO) 0.6 % (0-1); EOSINOPHILS # (AUTO) 0.4 X10'3 (0-0.9); EOSINOPHILS % (AUTO) 3.5 % (0-6); HEMATOCRIT 27.9 % (35.0-45.0); HEMOGLOBIN 9.4 g/dl (12.0-16.0); LYMPHOCYTES % (AUTO) 9.3 % (21-51); MEAN CORPUSCULAR HEMOGLOBIN 28.5 PG (27.0-31.0); MEAN CORPUSCULAR HGB CONC 33.6 % (33.0-36.5); MEAN CORPUSCULAR VOLUME 84.9 FL (78-98); MEAN PLATELET VOLUME 7.5 FL (7.4-10.4); MONOCYTES # (AUTO) 0.6 X10'3 (0-0.9); NEUTROPHILS # (AUTO) 9.1 X10'3 (1.8-7.7); NEUTROPHILS % (AUTO) 81.6 % (42-75); PLATELET COUNT 422 X10'3 (140-440); RED BLOOD COUNT 3.28 X10'6 (4.20-5.60); RED CELL DISTRIBUTION WIDTH 16.7 % (11.5-14.5); WHITE BLOOD COUNT 11.2 X10'3 (4.5-11.0)
[2017-08-03] MEDS: potassium CL 20mEq in D5-1/2NS 1,000 ML IV SCH (10:07)
[2017-08-03 11:00] VITALS: BP 103/67
[2017-08-03] MEDS ORDERED: magnesium 2GM in 50ml NS 50 ML IV PRN (11:25)
[2017-08-03] MEDS ORDERED: magnesium 4gm in 100ml NS 100 ML IV PRN (11:25)
[2017-08-03] MEDS ORDERED: magnesium Cl slow-release 64mg tablet PO PRN (11:25)
[2017-08-03] MEDS ORDERED: diphenoxylate/atropine tablet (Lomotil) PO ONE (11:40)
[2017-08-03] MEDS ORDERED: CEFD300C3 PO (14:24)
== END 2017-08-03 16:10 | disposition home health service (06) | DRG 871 ==
LOC: ER 08:10 → ED HOLD 11:31 → CICU 2S 13:01 → SUR 3N 07-29 14:28
PROVIDERS: ATTEND Family Medicine
PROC: 02HV33Z Insertion of Infusion Device into Superior Vena Cava, Percutaneous Approach (ICD-10-PCS; 2017-07-25)
PROC: B548ZZA Ultrasonography of Superior Vena Cava, Guidance (ICD-10-PCS; 2017-07-25)
PROC: 0T768DZ Dilation of Right Ureter with Intraluminal Device, Via Natural or Artificial Opening Endoscopic (ICD-10-PCS; 2017-07-26)
PROC: BT1D1ZZ Fluoroscopy of Right Kidney, Ureter and Bladder using Low Osmolar Contrast (ICD-10-PCS; principal; 2017-07-26 15:50)
DX: A41.9 Sepsis, unspecified organism (principal); R65.21 Severe sepsis with septic shock; I21.4 Non-ST elevation (NSTEMI) myocardial infarction; N17.9 Acute kidney failure, unspecified; N39.0 Urinary tract infection, site not specified; N20.1 Calculus of ureter; B96.20 Unspecified Escherichia coli [E. coli] as the cause of diseases classified elsewhere; N13.9 Obstructive and reflux uropathy, unspecified; H91.90 Unspecified hearing loss, unspecified ear; I25.10 Atherosclerotic heart disease of native coronary artery without angina pectoris; J44.9 Chronic obstructive pulmonary disease, unspecified; K52.9 Noninfective gastroenteritis and colitis, unspecified; T68.XXXA Hypothermia, initial encounter; F29 Unspecified psychosis not due to a substance or known physiological condition; F32.9 Major depressive disorder, single episode, unspecified; F41.9 Anxiety disorder, unspecified; G89.29 Other chronic pain; Z60.2 Problems related to living alone; Z90.710 Acquired absence of both cervix and uterus; I25.2 Old myocardial infarction; Z79.899 Other long term (current) drug therapy
CPT/HCPCS: 36415; 71045; 74176; 76001; 80053; 80202; 81001; 82810; 82948; 83605; 83690; 83735; 84100; 84132; 84145; 84484; 85025; 85610; 85730; 87040; 87045; 87046; 87070; 87077; 87088; 87186; 87324; 87449; 93005; 96361; 96374; 97110; 97116; 97161; 97530; 99291; A4402; A6212; A6213; A6449; C1751; C1758; C1769; C2625; C9113; J0696; J1200; J1644; J1956; J2001; J2175; J2250; J2405; J2543; J2704; J3010; J3370; J3475; J3480; J7030; J7120; P9047; Q9967

== ENCOUNTER 2017-08-12 10:12 | Emergency (ER) | payer MEDICARE, MEDICAID ==
[~2017-08-12] VITALS: Ht 172.7 cm; Wt 41.9 kg
[~2017-08-12 10:12] MED LIST changes: +BUDE3CAP8 PO; +CEFD300C3 PO; -DULO-31 PO; +LOPE2CAP PO; -MESA400C2 PO; -NITR100C6 PO; +POLY255P2 PO; -SULF500T59 PO
[2017-08-12 11:55] LABS: BASOPHILS # (AUTO) 0.1 X10'3 (0-0.2); EOSINOPHILS # (AUTO) 0.3 X10'3 (0-0.9); EOSINOPHILS % (AUTO) 4.2 % (0-6); HEMATOCRIT 29.9 % (35.0-45.0); LYMPHOCYTES # (AUTO) 1.1 X10'3 (1.1-4.8); LYMPHOCYTES % (AUTO) 14.9 % (21-51); MEAN CORPUSCULAR HEMOGLOBIN 28.1 PG (27.0-31.0); MEAN CORPUSCULAR HGB CONC 33.6 % (33.0-36.5); MEAN CORPUSCULAR VOLUME 83.9 FL (78-98); MEAN PLATELET VOLUME 6.8 FL (7.4-10.4); MONOCYTES # (AUTO) 0.8 X10'3 (0-0.9); NEUTROPHILS # (AUTO) 5.3 X10'3 (1.8-7.7); NEUTROPHILS % (AUTO) 69.9 % (42-75); PLATELET COUNT 478 X10'3 (140-440); RED BLOOD COUNT 3.57 X10'6 (4.20-5.60); RED CELL DISTRIBUTION WIDTH 15.3 % (11.5-14.5); WHITE BLOOD COUNT 7.5 X10'3 (4.5-11.0)
[2017-08-12 12:20] LABS: ALANINE AMINOTRANSFERASE 19 U/L (12-78); ALBUMIN 2.8 G/DL (3.4-5.0); ALBUMIN/GLOBULIN RATIO 0.6 (1.1-1.5); ALKALINE PHOSPHATASE 107 IU/L (46-116); ANION GAP 14 (8-16); ASPARTATE AMINO TRANSFERASE 14 U/L (10-37); BILIRUBIN,TOTAL 0.2 MG/DL (0.1-1.0); BLOOD UREA NITROGEN 29 MG/DL (7-18); CALCIUM 8.4 MG/DL (8.5-10.1); CHLORIDE 108 MMOL/L (99-107); CREATININE 2.41 MG/DL (0.40-0.90); GLUCOSE 95 MG/DL (70-104); POTASSIUM 4.1 MMOL/L (3.5-5.1); SODIUM 141 MMOL/L (135-145); TOTAL CARBON DIOXIDE 18.6 MMOL/L (24-32); TOTAL PROTEIN 7.8 G/DL (6.4-8.2); eGFR 20 ML/MIN
[2017-08-12 12:26] LABS: CLARITY,URINE TURBID (Clear)
[2017-08-12 12:33] LABS: URINE AMPHETAMINE SCREEN NEGATIVE (Neg); URINE BARBITUATE SCREEN NEGATIVE (Neg); URINE BENZODIAZEPINES SCREEN NEGATIVE (Neg); URINE CANNABINOID SCREEN NEGATIVE (Neg); URINE COCAINE SCREEN NEGATIVE (Neg); URINE METHADONE SCREEN NEGATIVE (Neg); URINE OPIATE SCREEN NEGATIVE (Neg); URINE PHENCYCLIDINE SCREEN NEGATIVE (Neg)
[2017-08-12 12:41] LABS: UA COLLECTION TYPE CLN CATCH MIDSTREAM
[2017-08-12 12:42] LABS: COLOR,URINE RED (Yellow)
[2017-08-12 12:43] LABS: BACTERIA,URINE 1+ /HPF (Neg); RBC,URINE TNTC /HPF (0-2); RENAL CELLS, URINE FEW /HPF; SQUAMOUS EPITHELIAL CELL,UR FEW /LPF (FEW); WBC,URINE TNTC /HPF (0-4); YEAST FEW /HPF (NEGATIVE)
[2017-08-12 15:10] VITALS: BP 115/74
[2017-08-12] MEDS ORDERED: CEFD300C3 PO (18:20)
== END 2017-08-12 19:13 ==
LOC: ER 10:13
DX: F32.9 Major depressive disorder, single episode, unspecified (principal); R45.851 Suicidal ideations; I25.2 Old myocardial infarction; I25.10 Atherosclerotic heart disease of native coronary artery without angina pectoris; J44.9 Chronic obstructive pulmonary disease, unspecified; G89.29 Other chronic pain; Z90.710 Acquired absence of both cervix and uterus; Z60.2 Problems related to living alone; Z79.899 Other long term (current) drug therapy
CPT/HCPCS: 36415; 80053; 80305; 80320; 81001; 84443; 85025; 87088; 87186; 99285

== ENCOUNTER 2017-08-12 16:55 | Inpatient (IN) | payer MEDICARE, MEDICAID ==
[~2017-08-12] VITALS: Ht 160 cm; Wt 50.2 kg
[2017-08-12] MEDS ORDERED: mag hydrox/Alum hydrox/simeth 30ml oral suspension PO PRN (18:15)
[2017-08-12] MEDS ORDERED: acetaminophen 325mg tablet PO PRN ×2 (18:15)
[2017-08-12] MEDS ORDERED: magnesium hydroxide 30ml (MOM) UD suspension PO PRN (18:15)
[2017-08-12] MEDS ORDERED: CEFD300C3 PO (18:20)
[2017-08-12] MEDS ORDERED: loperamide 2mg capsule PO PRN (19:40)
[2017-08-12 20:00] VITALS: BP 100/70
[2017-08-12] MEDS ORDERED: non-formulary drug (Cefdinir* 1 CAP) PO SCH (20:00)
[2017-08-12] MEDS ORDERED: polyethylene glycol 3350 17gm powd pack PO SCH (21:00)
[2017-08-12] MEDS: traZODone 50mg tablet PO PRN ×2 (21:30→22:14)
[2017-08-13 07:15] LABS: HEMOGLOBIN A1C 5.7 % (4.5-6.2)
[2017-08-13 07:24] LABS: CHOL/HDL RATIO 4.1 (0.00-4.99); CHOLESTEROL 145 MG/DL (0-200); HDL CHOLESTEROL 35 MG/DL (35-60); LDL CHOLESTEROL 80 MG/DL (50-100); TRIGLYCERIDES 158 MG/DL (20-135)
[2017-08-13] MEDS ORDERED: CEFDINIR PO SCH (08:00)
[2017-08-13] MEDS ORDERED: BUDESONIDE PO SCH (08:00)
[2017-08-13 08:52] VITALS: BP 93/58
== END 2017-08-13 09:05 | disposition home or self-care (01) | DRG 881 ==
LOC: ADULT MH 16:55
PROVIDERS: ADMIT Psychiatry & Neurology Psychiatry; ATTEND Psychiatry & Neurology Psychiatry
DX: F32.9 Major depressive disorder, single episode, unspecified (principal); J44.9 Chronic obstructive pulmonary disease, unspecified; R45.851 Suicidal ideations; I25.10 Atherosclerotic heart disease of native coronary artery without angina pectoris; G89.29 Other chronic pain; F41.9 Anxiety disorder, unspecified; I25.2 Old myocardial infarction; Z79.899 Other long term (current) drug therapy; Z87.442 Personal history of urinary calculi; K58.9 Irritable bowel syndrome, unspecified
CPT/HCPCS: 36415; 80061; 83036; 87070; 99285

== ENCOUNTER 2017-11-22 12:12 | Emergency (ER) | payer MEDICARE, MEDICAID ==
[~2017-11-22] VITALS: Ht 160 cm; Wt 50.0 kg
[~2017-11-22 12:12] MED LIST changes: -CEFD300C3 PO; -POLY255P2 PO
[2017-11-22 12:44] VITALS: BP 99/66
== END 2017-11-22 13:15 | disposition home or self-care (01) ==
LOC: ER 12:12
DX: L03.032 Cellulitis of left toe (principal); L03.031 Cellulitis of right toe; I73.9 Peripheral vascular disease, unspecified; I25.10 Atherosclerotic heart disease of native coronary artery without angina pectoris; I25.2 Old myocardial infarction; J44.9 Chronic obstructive pulmonary disease, unspecified; G89.29 Other chronic pain; Z87.442 Personal history of urinary calculi; Z85.9 Personal history of malignant neoplasm, unspecified; Z98.890 Other specified postprocedural states; Z90.710 Acquired absence of both cervix and uterus; Z60.2 Problems related to living alone; Z88.8 Allergy status to other drugs, medicaments and biological substances; Z79.899 Other long term (current) drug therapy
CPT/HCPCS: 99283

== ENCOUNTER 2018-01-04 10:37 | Inpatient (IN) | payer MEDICARE, MEDICAID ==
[~2018-01-04] VITALS: Ht 160 cm; Wt 45.0 kg
[2018-01-04 11:55] LABS: CLARITY,URINE CLOUDY (Clear); COLOR,URINE YELLOW (Yellow); GLUCOSE, URINE NEGATIVE (Neg); KETONES,URINE NEGATIVE (Neg); LEUKOCYTE ESTERASE ,URINE LARGE (Neg); NITRITES, URINE NEGATIVE (Neg); OCCULT BLOOD,URINE LARGE (Neg); PROTEIN,URINE 100 mg/dl (Neg); UROBILINOGEN,URINE 0.2 E.U/dL (0.2-1.0)
[2018-01-04 12:17] LABS: UA COLLECTION TYPE CLN CATCH MIDSTREAM
[2018-01-04 12:20] LABS: WBC,URINE TNTC /HPF (0-4)
[2018-01-04 12:22] LABS: BACTERIA,URINE 2+ /HPF (Neg); RBC,URINE 0-2 /HPF (0-2)
[2018-01-04 12:28] LABS: SQUAMOUS EPITHELIAL CELL,UR MANY /LPF (FEW)
[2018-01-04 14:23] LABS: BASOPHILS # (AUTO) 0.1 X10'3 (0-0.2); BASOPHILS % (AUTO) 0.7 % (0-1); EOSINOPHILS # (AUTO) 0.4 X10'3 (0-0.9); HEMATOCRIT 28.7 % (35.0-45.0); HEMOGLOBIN 9.4 g/dl (12.0-16.0); LYMPHOCYTES # (AUTO) 1.8 X10'3 (1.1-4.8); LYMPHOCYTES % (AUTO) 20.8 % (21-51); MEAN CORPUSCULAR HEMOGLOBIN 28.2 PG (27.0-31.0); MEAN CORPUSCULAR HGB CONC 32.6 % (33.0-36.5); MEAN CORPUSCULAR VOLUME 86.3 FL (78-98); MONOCYTES # (AUTO) 0.5 X10'3 (0-0.9); MONOCYTES % (AUTO) 5.8 % (2-12); NEUTROPHILS # (AUTO) 5.7 X10'3 (1.8-7.7); NEUTROPHILS % (AUTO) 67.7 % (42-75); PLATELET COUNT 394 X10'3 (140-440); RED BLOOD COUNT 3.33 X10'6 (4.20-5.60); WHITE BLOOD COUNT 8.5 X10'3 (4.5-11.0)
[2018-01-04 14:48] LABS: ALANINE AMINOTRANSFERASE 18 U/L (12-78); ALBUMIN 3.3 G/DL (3.4-5.0); ALBUMIN/GLOBULIN RATIO 0.7 (1.1-1.5); ALKALINE PHOSPHATASE 102 IU/L (46-116); ANION GAP 17 (8-16); ASPARTATE AMINO TRANSFERASE 11 U/L (10-37); BILIRUBIN,TOTAL 0.2 MG/DL (0.1-1.0); BLOOD UREA NITROGEN 26 MG/DL (7-18); BUN/CREATININE RATIO 11.3 (6.6-38.0); CALCIUM 8.5 MG/DL (8.5-10.1); CHLORIDE 106 MMOL/L (99-107); ETHANOL < 0.010 GM/DL (0.0-0.010); GLUCOSE 109 MG/DL (70-104); POTASSIUM 3.8 MMOL/L (3.5-5.1); SODIUM 137 MMOL/L (135-145); eGFR 21 ML/MIN
[2018-01-04 14:49] LABS: TOTAL CARBON DIOXIDE 14.3 MMOL/L (24-32)
[2018-01-04] MEDS ORDERED: normal saline 1000ML IV soln IVB ONE ×3 (14:55→17:40)
[2018-01-04 17:21] LABS: ALANINE AMINOTRANSFERASE 15 U/L (12-78); ALBUMIN 2.8 G/DL (3.4-5.0); ALBUMIN/GLOBULIN RATIO 0.7 (1.1-1.5); ALKALINE PHOSPHATASE 89 IU/L (46-116); ANION GAP 13 (8-16); ASPARTATE AMINO TRANSFERASE 10 U/L (10-37); BILIRUBIN,TOTAL 0.2 MG/DL (0.1-1.0); BLOOD UREA NITROGEN 24 MG/DL (7-18); BUN/CREATININE RATIO 11.6 (6.6-38.0); CALCIUM 7.9 MG/DL (8.5-10.1); CHLORIDE 109 MMOL/L (99-107); CREATININE 2.07 MG/DL (0.40-0.90); GLUCOSE 109 MG/DL (70-104); POTASSIUM 3.6 MMOL/L (3.5-5.1); SODIUM 139 MMOL/L (135-145); TOTAL CARBON DIOXIDE 16.7 MMOL/L (24-32); eGFR 23 ML/MIN
[2018-01-04] MEDS ORDERED: LINA72CA (17:50)
[2018-01-04] MEDS ORDERED: potassium Cl 40MEQ/NS 500ml 500 ML IV PRN ×2 (18:50)
[2018-01-04] MEDS ORDERED: bisacodyl 10mg suppository rectal RC PRN (18:50)
[2018-01-04] MEDS ORDERED: magnesium hydroxide 30ml (MOM) UD suspension PO PRN (18:50)
[2018-01-04] MEDS ORDERED: magnesium 1gm/100ml D5W IVPB 100 ML IV PRN (18:50)
[2018-01-04] MEDS ORDERED: ondansetron/PF 4mg/2ml inj IV PRN (18:50)
[2018-01-04] MEDS ORDERED: magnesium 4gm in 100ml NS 100 ML IV PRN (18:50)
[2018-01-04] MEDS ORDERED: potassium Cl 20 mEq SR tablet PO PRN ×2 (18:50)
[2018-01-04] MEDS ORDERED: mag hydrox/Alum hydrox/simeth 30ml oral suspension PO PRN (18:50)
[2018-01-04 19:08] LABS: CLARITY,URINE CLOUDY (Clear); COLOR,URINE STRAW (Yellow); GLUCOSE, URINE NEGATIVE (Neg); KETONES,URINE NEGATIVE (Neg); LEUKOCYTE ESTERASE ,URINE LARGE (Neg); NITRITES, URINE NEGATIVE (Neg); OCCULT BLOOD,URINE MODERATE (Neg); PROTEIN,URINE 30 mg/dl (Neg); UROBILINOGEN,URINE 0.2 E.U/dL (0.2-1.0)
[2018-01-04 19:14] LABS: UA COLLECTION TYPE CLN CATCH MIDSTREAM
[2018-01-04 19:20] LABS: URINE AMPHETAMINE SCREEN NEGATIVE (Neg); URINE BARBITUATE SCREEN NEGATIVE (Neg); URINE BENZODIAZEPINES SCREEN NEGATIVE (Neg); URINE CANNABINOID SCREEN NEGATIVE (Neg); URINE COCAINE SCREEN NEGATIVE (Neg); URINE METHADONE SCREEN NEGATIVE (Neg); URINE OPIATE SCREEN NEGATIVE (Neg); URINE PHENCYCLIDINE SCREEN NEGATIVE (Neg)
[2018-01-04 19:23] LABS: BACTERIA,URINE 1+ /HPF (Neg); RBC,URINE 20-50 /HPF (0-2); SQUAMOUS EPITHELIAL CELL,UR FEW /LPF (FEW); WBC,URINE TNTC /HPF (0-4)
[2018-01-04 19:24] LABS: YEAST FEW /HPF (NEGATIVE)
[2018-01-04] MEDS: docusate sod 100mg capsule PO SCH (19:33)
[2018-01-04] MEDS: heparin, porcine 5000 units/ml vial SQ SCH (19:33)
[2018-01-04] MEDS: potassium Cl 20mEq in NS 1,000 ML IV SCH (19:34)
[2018-01-04] MEDS: levoFLOXACIN-Levaquin 500mg/D5 100 ML IV SCH (19:34)
[2018-01-04 21:10] VITALS: BP 109/67
[2018-01-04] MEDS: temazepam 15mg capsule PO PRN (22:04)
[2018-01-04] MEDS: sertraline 25mg tablet PO SCH (22:04)
[2018-01-04 23:37] VITALS: BP 109/67
[2018-01-05] VITALS: BP 104/74
[2018-01-05 05:57] LABS: BASOPHILS # (AUTO) 0.1 X10'3 (0-0.2); BASOPHILS % (AUTO) 1.7 % (0-1); EOSINOPHILS # (AUTO) 0.4 X10'3 (0-0.9); EOSINOPHILS % (AUTO) 4.9 % (0-6); HEMATOCRIT 25.1 % (35.0-45.0); HEMOGLOBIN 8.4 g/dl (12.0-16.0); LYMPHOCYTES # (AUTO) 1.4 X10'3 (1.1-4.8); LYMPHOCYTES % (AUTO) 18.4 % (21-51); MEAN CORPUSCULAR HEMOGLOBIN 28.1 PG (27.0-31.0); MEAN CORPUSCULAR HGB CONC 33.3 % (33.0-36.5); MEAN CORPUSCULAR VOLUME 84.4 FL (78-98); MEAN PLATELET VOLUME 7.2 FL (7.4-10.4); MONOCYTES # (AUTO) 0.5 X10'3 (0-0.9); MONOCYTES % (AUTO) 6.7 % (2-12); NEUTROPHILS # (AUTO) 5.2 X10'3 (1.8-7.7); NEUTROPHILS % (AUTO) 68.3 % (42-75); PLATELET COUNT 317 X10'3 (140-440); RED BLOOD COUNT 2.98 X10'6 (4.20-5.60); RED CELL DISTRIBUTION WIDTH 16.6 % (11.5-14.5); WHITE BLOOD COUNT 7.6 X10'3 (4.5-11.0)
[2018-01-05 06:32] LABS: ALANINE AMINOTRANSFERASE 17 U/L (12-78); ALBUMIN 2.6 G/DL (3.4-5.0); ALBUMIN/GLOBULIN RATIO 0.6 (1.1-1.5); ALKALINE PHOSPHATASE 82 IU/L (46-116); ANION GAP 15 (8-16); ASPARTATE AMINO TRANSFERASE 8 U/L (10-37); BILIRUBIN,TOTAL 0.2 MG/DL (0.1-1.0); BLOOD UREA NITROGEN 20 MG/DL (7-18); BUN/CREATININE RATIO 9.6 (6.6-38.0); CALCIUM 8.1 MG/DL (8.5-10.1); CHLORIDE 113 MMOL/L (99-107); CREATININE 2.08 MG/DL (0.40-0.90); GLUCOSE 103 MG/DL (70-104); MAGNESIUM 1.4 MG/DL (1.5-2.4); POTASSIUM 3.9 MMOL/L (3.5-5.1); SODIUM 142 MMOL/L (135-145); TOTAL PROTEIN 6.7 G/DL (6.4-8.2); eGFR 23 ML/MIN
[2018-01-05] MEDS: potassium Cl 20mEq in NS 1,000 ML IV SCH (06:40)
[2018-01-05 06:50] LABS: TOTAL CARBON DIOXIDE 14.5 MMOL/L (24-32)
[2018-01-05 07:18] VITALS: BP 121/79
[2018-01-05] MEDS: sertraline 25mg tablet PO SCH (07:58)
[2018-01-05] MEDS: heparin, porcine 5000 units/ml vial SQ SCH ×2 (07:58→19:15)
[2018-01-05] MEDS: levoFLOXACIN-Levaquin 500mg/D5 100 ML IV SCH (07:58)
[2018-01-05] MEDS: docusate sod 100mg capsule PO SCH ×2 (07:59→19:16)
[2018-01-05] MEDS: K and/or MAG REPLACEMENT MC SCH (08:00)
[2018-01-05] MEDS: LACTOSE-FREE FOOD 237ML (BOOST) PO SCH ×3 (08:00→18:00)
[2018-01-05] MEDS: magnesium Cl slow-release 64mg tablet PO PRN ×2 (08:02→17:40)
[2018-01-05 11:56] VITALS: BP 108/73
[2018-01-05] MEDS ORDERED: SODIUM BICARBONATE IV SCH (17:30)
[2018-01-05] MEDS ORDERED: [UNRECOGNIZED DRUG - OTHER] IV SCH (17:30)
[2018-01-05] MEDS ORDERED: POTASSIUM CL IV SCH (17:30)
[2018-01-05] MEDS: fluconazole 100mg tablet PO SCH (17:39)
[2018-01-05] MEDS: diphenoxylate/atropine tablet (Lomotil) PO SCH ×2 (17:40→20:57)
[2018-01-05 18:30] VITALS: BP 122/83
[2018-01-05] MEDS: sodium bicarbonate (8.4%) inj. 50 MEQ, Potassium Cl inj 20 MEQ in sodium chloride 0.45%... IV SCH (19:15)
[2018-01-05] MEDS: loperamide 2mg capsule PO PRN (19:21)
[2018-01-05] MEDS: temazepam 15mg capsule PO PRN (20:57)
[2018-01-05] MEDS ORDERED: ondansetron 4mg rapidly disintigrating tab PO PRN (21:30)
[2018-01-06] VITALS: BP 115/75
[2018-01-06] MEDS: sodium bicarbonate (8.4%) inj. 50 MEQ, Potassium Cl inj 20 MEQ in sodium chloride 0.45%... IV SCH ×2 (04:38→14:27)
[2018-01-06 05:07] LABS: BASOPHILS # (AUTO) 0.1 X10'3 (0-0.2); EOSINOPHILS # (AUTO) 0.4 X10'3 (0-0.9); EOSINOPHILS % (AUTO) 5.1 % (0-6); HEMATOCRIT 23.3 % (35.0-45.0); HEMOGLOBIN 7.8 g/dl (12.0-16.0); LYMPHOCYTES # (AUTO) 1.7 X10'3 (1.1-4.8); LYMPHOCYTES % (AUTO) 22.4 % (21-51); MEAN CORPUSCULAR HEMOGLOBIN 28.5 PG (27.0-31.0); MEAN CORPUSCULAR HGB CONC 33.5 % (33.0-36.5); MEAN CORPUSCULAR VOLUME 85.2 FL (78-98); MEAN PLATELET VOLUME 7.1 FL (7.4-10.4); MONOCYTES # (AUTO) 0.6 X10'3 (0-0.9); MONOCYTES % (AUTO) 8.3 % (2-12); NEUTROPHILS # (AUTO) 4.7 X10'3 (1.8-7.7); NEUTROPHILS % (AUTO) 63.2 % (42-75); PLATELET COUNT 308 X10'3 (140-440); RED BLOOD COUNT 2.73 X10'6 (4.20-5.60); RED CELL DISTRIBUTION WIDTH 16.6 % (11.5-14.5); WHITE BLOOD COUNT 7.5 X10'3 (4.5-11.0)
[2018-01-06] MEDS: acetaminophen 325mg tablet PO PRN ×2 (05:22→19:29)
[2018-01-06 05:32] LABS: ALANINE AMINOTRANSFERASE 14 U/L (12-78); ALBUMIN 2.4 G/DL (3.4-5.0); ALBUMIN/GLOBULIN RATIO 0.6 (1.1-1.5); ALKALINE PHOSPHATASE 80 IU/L (46-116); ANION GAP 13 (8-16); ASPARTATE AMINO TRANSFERASE 9 U/L (10-37); BILIRUBIN,TOTAL 0.2 MG/DL (0.1-1.0); BLOOD UREA NITROGEN 17 MG/DL (7-18); BUN/CREATININE RATIO 9.4 (6.6-38.0); CALCIUM 8.1 MG/DL (8.5-10.1); CHLORIDE 113 MMOL/L (99-107); CREATININE 1.81 MG/DL (0.40-0.90); GLUCOSE 83 MG/DL (70-104); MAGNESIUM 1.4 MG/DL (1.5-2.4); POTASSIUM 4.2 MMOL/L (3.5-5.1); SODIUM 142 MMOL/L (135-145); TOTAL CARBON DIOXIDE 16.3 MMOL/L (24-32); TOTAL PROTEIN 6.2 G/DL (6.4-8.2); eGFR 27 ML/MIN
[2018-01-06 07:00] VITALS: BP 114/69
[2018-01-06] MEDS: K and/or MAG REPLACEMENT MC SCH (08:00)
[2018-01-06] MEDS: LACTOSE-FREE FOOD 237ML (BOOST) PO SCH ×3 (08:00→18:00)
[2018-01-06] MEDS: docusate sod 100mg capsule PO SCH ×2 (08:00→19:30)
[2018-01-06] MEDS: sertraline 25mg tablet PO SCH (08:28)
[2018-01-06] MEDS: diphenoxylate/atropine tablet (Lomotil) PO SCH (08:28)
[2018-01-06] MEDS: fluconazole 100mg tablet PO SCH (08:28)
[2018-01-06] MEDS: heparin, porcine 5000 units/ml vial SQ SCH ×2 (08:30→19:29)
[2018-01-06] MEDS: levoFLOXACIN 250mg tablet PO SCH (11:21)
[2018-01-06] MEDS: magnesium Cl slow-release 64mg tablet PO PRN (11:21)
[2018-01-06 12:00] VITALS: BP 117/80
[2018-01-06] MEDS: hyoscyamine 0.125mg TAB.SUBL SL SCH ×2 (14:27→20:51)
[2018-01-06 18:20] VITALS: BP 109/75
[2018-01-06] MEDS: lactobacillus rhamnosus 10,000 MMU CELLS/CAPSULE PO SCH (19:29)
[2018-01-06] MEDS: temazepam 15mg capsule PO PRN (20:51)
[2018-01-07] VITALS: BP 99/63
[2018-01-07] MEDS: acetaminophen 325mg tablet PO PRN (01:24)
[2018-01-07] MEDS: sodium bicarbonate (8.4%) inj. 50 MEQ, Potassium Cl inj 20 MEQ in sodium chloride 0.45%... IV SCH ×2 (01:25→17:12)
[2018-01-07 05:11] LABS: BASOPHILS # (AUTO) 0.1 X10'3 (0-0.2); BASOPHILS % (AUTO) 1.2 % (0-1); EOSINOPHILS # (AUTO) 0.4 X10'3 (0-0.9); EOSINOPHILS % (AUTO) 6.6 % (0-6); HEMATOCRIT 22.5 % (35.0-45.0); HEMOGLOBIN 7.4 g/dl (12.0-16.0); LYMPHOCYTES # (AUTO) 1.9 X10'3 (1.1-4.8); LYMPHOCYTES % (AUTO) 33.1 % (21-51); MEAN CORPUSCULAR HEMOGLOBIN 28.1 PG (27.0-31.0); MEAN CORPUSCULAR VOLUME 85.3 FL (78-98); MEAN PLATELET VOLUME 7.2 FL (7.4-10.4); MONOCYTES # (AUTO) 0.4 X10'3 (0-0.9); MONOCYTES % (AUTO) 6.8 % (2-12); NEUTROPHILS # (AUTO) 2.9 X10'3 (1.8-7.7); NEUTROPHILS % (AUTO) 52.3 % (42-75); PLATELET COUNT 287 X10'3 (140-440); RED BLOOD COUNT 2.64 X10'6 (4.20-5.60); RED CELL DISTRIBUTION WIDTH 16.9 % (11.5-14.5); WHITE BLOOD COUNT 5.6 X10'3 (4.5-11.0)
[2018-01-07 05:43] LABS: ALANINE AMINOTRANSFERASE 13 U/L (12-78); ALBUMIN 2.5 G/DL (3.4-5.0); ALBUMIN/GLOBULIN RATIO 0.7 (1.1-1.5); ALKALINE PHOSPHATASE 81 IU/L (46-116); ANION GAP 11 (8-16); ASPARTATE AMINO TRANSFERASE 11 U/L (10-37); BILIRUBIN,TOTAL 0.2 MG/DL (0.1-1.0); BLOOD UREA NITROGEN 16 MG/DL (7-18); BUN/CREATININE RATIO 8.3 (6.6-38.0); CHLORIDE 108 MMOL/L (99-107); CREATININE 1.92 MG/DL (0.40-0.90); GLUCOSE 86 MG/DL (70-104); MAGNESIUM 1.4 MG/DL (1.5-2.4); SODIUM 139 MMOL/L (135-145); TOTAL CARBON DIOXIDE 19.8 MMOL/L (24-32); TOTAL PROTEIN 6.2 G/DL (6.4-8.2); eGFR 25 ML/MIN
[2018-01-07] MEDS: sertraline 25mg tablet PO SCH (07:54)
[2018-01-07] MEDS: hyoscyamine 0.125mg TAB.SUBL SL SCH ×3 (07:54→20:48)
[2018-01-07] MEDS: lactobacillus rhamnosus 10,000 MMU CELLS/CAPSULE PO SCH ×2 (07:54→20:48)
[2018-01-07] MEDS: fluconazole 100mg tablet PO SCH (07:54)
[2018-01-07] MEDS: heparin, porcine 5000 units/ml vial SQ SCH ×2 (07:57→20:00)
[2018-01-07 08:00] VITALS: BP 118/81
[2018-01-07] MEDS: docusate sod 100mg capsule PO SCH ×2 (08:00→20:00)
[2018-01-07] MEDS: K and/or MAG REPLACEMENT MC SCH (08:00)
[2018-01-07] MEDS: LACTOSE-FREE FOOD 237ML (BOOST) PO SCH ×3 (08:00→18:00)
[2018-01-07] MEDS: levoFLOXACIN 250mg tablet PO SCH (11:05)
[2018-01-07 12:00] VITALS: BP 119/83
[2018-01-07] MEDS: loperamide 2mg capsule PO PRN (13:37)
[2018-01-07] MEDS: magnesium Cl slow-release 64mg tablet PO PRN (15:20)
[2018-01-07 20:00] VITALS: BP 135/84
[2018-01-07] MEDS: temazepam 15mg capsule PO PRN (20:48)
[2018-01-08] VITALS: BP 110/73
[2018-01-08 05:30] LABS: BASOPHILS # (AUTO) 0.1 X10'3 (0-0.2); BASOPHILS % (AUTO) 1.2 % (0-1); EOSINOPHILS # (AUTO) 0.4 X10'3 (0-0.9); EOSINOPHILS % (AUTO) 6.9 % (0-6); HEMATOCRIT 22.5 % (35.0-45.0); HEMOGLOBIN 7.6 g/dl (12.0-16.0); LYMPHOCYTES # (AUTO) 1.8 X10'3 (1.1-4.8); LYMPHOCYTES % (AUTO) 31.8 % (21-51); MEAN CORPUSCULAR HEMOGLOBIN 28.5 PG (27.0-31.0); MEAN CORPUSCULAR HGB CONC 33.8 % (33.0-36.5); MEAN CORPUSCULAR VOLUME 84.2 FL (78-98); MEAN PLATELET VOLUME 7.3 FL (7.4-10.4); MONOCYTES # (AUTO) 0.5 X10'3 (0-0.9); MONOCYTES % (AUTO) 8.1 % (2-12); NEUTROPHILS # (AUTO) 2.9 X10'3 (1.8-7.7); PLATELET COUNT 285 X10'3 (140-440); RED BLOOD COUNT 2.67 X10'6 (4.20-5.60); RED CELL DISTRIBUTION WIDTH 17.1 % (11.5-14.5); WHITE BLOOD COUNT 5.6 X10'3 (4.5-11.0)
[2018-01-08] MEDS: sodium bicarbonate (8.4%) inj. 50 MEQ, Potassium Cl inj 20 MEQ in sodium chloride 0.45%... IV SCH (05:40)
[2018-01-08 05:41] LABS: ALANINE AMINOTRANSFERASE 16 U/L (12-78); ALBUMIN 2.5 G/DL (3.4-5.0); ALBUMIN/GLOBULIN RATIO 0.7 (1.1-1.5); ALKALINE PHOSPHATASE 80 IU/L (46-116); ANION GAP 8 (8-16); ASPARTATE AMINO TRANSFERASE 12 U/L (10-37); BILIRUBIN,TOTAL 0.2 MG/DL (0.1-1.0); BLOOD UREA NITROGEN 18 MG/DL (7-18); BUN/CREATININE RATIO 9.3 (6.6-38.0); CALCIUM 8.2 MG/DL (8.5-10.1); CHLORIDE 106 MMOL/L (99-107); CREATININE 1.94 MG/DL (0.40-0.90); GLUCOSE 82 MG/DL (70-104); MAGNESIUM 1.5 MG/DL (1.5-2.4); POTASSIUM 4.3 MMOL/L (3.5-5.1); SODIUM 138 MMOL/L (135-145); TOTAL CARBON DIOXIDE 24.3 MMOL/L (24-32); TOTAL PROTEIN 6.1 G/DL (6.4-8.2); eGFR 25 ML/MIN
[2018-01-08] MEDS: acetaminophen 325mg tablet PO PRN (05:45)
[2018-01-08] MEDS: loperamide 2mg capsule PO PRN ×5 (05:46→20:05)
[2018-01-08 07:30] VITALS: BP 112/77
[2018-01-08] MEDS: LACTOSE-FREE FOOD 237ML (BOOST) PO SCH ×3 (08:00→17:52)
[2018-01-08] MEDS: K and/or MAG REPLACEMENT MC SCH (08:00)
[2018-01-08] MEDS: docusate sod 100mg capsule PO SCH (08:00)
[2018-01-08] MEDS: normal saline 1000ml 1,000 ML IV SCH ×2 (08:05→17:48)
[2018-01-08] MEDS: fluconazole 100mg tablet PO SCH (09:34)
[2018-01-08] MEDS: lactobacillus rhamnosus 10,000 MMU CELLS/CAPSULE PO SCH ×2 (09:34→20:05)
[2018-01-08] MEDS: sertraline 25mg tablet PO SCH (09:34)
[2018-01-08] MEDS: hyoscyamine 0.125mg TAB.SUBL SL SCH ×3 (09:35→20:04)
[2018-01-08] MEDS: heparin, porcine 5000 units/ml vial SQ SCH ×2 (09:36→20:04)
[2018-01-08 11:53] VITALS: BP 119/86
[2018-01-08] MEDS: levoFLOXACIN 250mg tablet PO SCH (12:09)
[2018-01-08 20:00] VITALS: BP 116/78
[2018-01-08] MEDS: temazepam 15mg capsule PO PRN (20:04)
[2018-01-09] VITALS: BP 123/75
[2018-01-09] MEDS: acetaminophen 325mg tablet PO PRN (03:52)
[2018-01-09 05:17] LABS: BASOPHILS # (AUTO) 0.1 X10'3 (0-0.2); BASOPHILS % (AUTO) 1.2 % (0-1); EOSINOPHILS # (AUTO) 0.3 X10'3 (0-0.9); EOSINOPHILS % (AUTO) 5.5 % (0-6); HEMATOCRIT 25.3 % (35.0-45.0); HEMOGLOBIN 8.3 g/dl (12.0-16.0); LYMPHOCYTES # (AUTO) 1.8 X10'3 (1.1-4.8); LYMPHOCYTES % (AUTO) 31.6 % (21-51); MEAN CORPUSCULAR HEMOGLOBIN 28.1 PG (27.0-31.0); MEAN CORPUSCULAR VOLUME 84.9 FL (78-98); MEAN PLATELET VOLUME 7.6 FL (7.4-10.4); MONOCYTES # (AUTO) 0.4 X10'3 (0-0.9); MONOCYTES % (AUTO) 7.1 % (2-12); NEUTROPHILS # (AUTO) 3.2 X10'3 (1.8-7.7); NEUTROPHILS % (AUTO) 54.6 % (42-75); PLATELET COUNT 301 X10'3 (140-440); RED BLOOD COUNT 2.97 X10'6 (4.20-5.60); RED CELL DISTRIBUTION WIDTH 17.1 % (11.5-14.5); WHITE BLOOD COUNT 5.8 X10'3 (4.5-11.0)
[2018-01-09] MEDS: normal saline 1000ml 1,000 ML IV SCH (05:30)
[2018-01-09 05:45] LABS: ALANINE AMINOTRANSFERASE 15 U/L (12-78); ALBUMIN 2.7 G/DL (3.4-5.0); ALBUMIN/GLOBULIN RATIO 0.7 (1.1-1.5); ALKALINE PHOSPHATASE 92 IU/L (46-116); ANION GAP 9 (8-16); ASPARTATE AMINO TRANSFERASE 16 U/L (10-37); BILIRUBIN,TOTAL 0.2 MG/DL (0.1-1.0); BLOOD UREA NITROGEN 18 MG/DL (7-18); BUN/CREATININE RATIO 9.2 (6.6-38.0); CALCIUM 8.2 MG/DL (8.5-10.1); CHLORIDE 105 MMOL/L (99-107); CREATININE 1.95 MG/DL (0.40-0.90); GLUCOSE 86 MG/DL (70-104); MAGNESIUM 1.3 MG/DL (1.5-2.4); POTASSIUM 4.2 MMOL/L (3.5-5.1); SODIUM 139 MMOL/L (135-145); TOTAL CARBON DIOXIDE 24.8 MMOL/L (24-32); TOTAL PROTEIN 6.5 G/DL (6.4-8.2); eGFR 25 ML/MIN
[2018-01-09 07:10] VITALS: BP 98/62
[2018-01-09] MEDS: LACTOSE-FREE FOOD 237ML (BOOST) PO SCH ×3 (08:00→17:40)
[2018-01-09] MEDS: K and/or MAG REPLACEMENT MC SCH (08:00)
[2018-01-09] MEDS: lactobacillus rhamnosus 10,000 MMU CELLS/CAPSULE PO SCH (09:26)
[2018-01-09] MEDS: fluconazole 100mg tablet PO SCH (09:27)
[2018-01-09] MEDS: sertraline 25mg tablet PO SCH (09:27)
[2018-01-09] MEDS: hyoscyamine 0.125mg TAB.SUBL SL SCH ×4 (09:27→20:00)
[2018-01-09] MEDS: heparin, porcine 5000 units/ml vial SQ SCH ×2 (09:28→20:00)
[2018-01-09] MEDS ORDERED: magnesium 1gm/100ml D5W IVPB 100 ML IV PRN (10:45)
[2018-01-09] MEDS ORDERED: potassium Cl 20 mEq SR tablet PO PRN ×2 (10:45)
[2018-01-09] MEDS ORDERED: magnesium 4gm in 100ml NS 100 ML IV PRN (10:45)
[2018-01-09] MEDS ORDERED: potassium Cl 40MEQ/NS 500ml 500 ML IV PRN ×2 (10:45)
[2018-01-09 11:00] VITALS: BP 123/85
[2018-01-09] MEDS: magnesium Cl slow-release 64mg tablet PO PRN ×2 (11:01→20:00)
[2018-01-09] MEDS: loperamide 2mg capsule PO PRN ×2 (17:37→20:00)
[2018-01-09 20:00] VITALS: BP 107/68
[2018-01-09] MEDS: temazepam 15mg capsule PO PRN (20:00)
[2018-01-10 00:53] VITALS: BP 100/65
[2018-01-10 05:08] LABS: ALBUMIN 2.6 G/DL (3.4-5.0); ANION GAP 9 (8-16); BLOOD UREA NITROGEN 20 MG/DL (7-18); BUN/CREATININE RATIO 10.7 (6.6-38.0); CALCIUM 8.3 MG/DL (8.5-10.1); CHLORIDE 104 MMOL/L (99-107); CREATININE 1.87 MG/DL (0.40-0.90); GLUCOSE 83 MG/DL (70-104); MAGNESIUM 1.7 MG/DL (1.5-2.4); POTASSIUM 4.3 MMOL/L (3.5-5.1); SODIUM 139 MMOL/L (135-145); TOTAL CARBON DIOXIDE 25.7 MMOL/L (24-32); eGFR 26 ML/MIN
[2018-01-10 07:00] VITALS: BP 106/67
[2018-01-10] MEDS: hyoscyamine 0.125mg TAB.SUBL SL SCH ×2 (07:34→12:59)
[2018-01-10] MEDS: sertraline 25mg tablet PO SCH (07:35)
[2018-01-10] MEDS: LACTOSE-FREE FOOD 237ML (BOOST) PO SCH ×2 (07:36→13:00)
[2018-01-10] MEDS: heparin, porcine 5000 units/ml vial SQ SCH (07:43)
[2018-01-10] MEDS ORDERED: K and/or MAG REPLACEMENT MC SCH (08:00)
[2018-01-10] MEDS: K and/or MAG REPLACEMENT MC SCH (08:00)
[2018-01-10] MEDS: fluconazole 100mg tablet PO SCH (09:01)
[2018-01-10 11:00] VITALS: BP 99/71
[2018-01-10] MEDS ORDERED: FLUC100T9 PO (11:28)
[2018-01-10] MEDS ORDERED: SERT50TA PO (11:28)
[2018-01-10] MEDS ORDERED: LACT-28 PO (11:28)
[2018-01-10] MEDS ORDERED: HYOS0.1277 SL (11:28)
== END 2018-01-10 14:49 | disposition home health service (06) | DRG 682 ==
LOC: ER 10:38 → ED HOLD 18:25 → SUR 3N 21:05
PROVIDERS: ADMIT Internal Medicine; ATTEND Internal Medicine
DX: N17.9 Acute kidney failure, unspecified (principal); E43 Unspecified severe protein-calorie malnutrition; E87.2 Acidosis; Z68.1 Body mass index [BMI] 19.9 or less, adult; B37.49 Other urogenital candidiasis; D64.9 Anemia, unspecified; I95.9 Hypotension, unspecified; E86.0 Dehydration; F41.9 Anxiety disorder, unspecified; F32.9 Major depressive disorder, single episode, unspecified; G89.29 Other chronic pain; G62.9 Polyneuropathy, unspecified; I25.10 Atherosclerotic heart disease of native coronary artery without angina pectoris; J44.9 Chronic obstructive pulmonary disease, unspecified; K58.0 Irritable bowel syndrome with diarrhea; N18.3 Chronic kidney disease, stage 3 (moderate); Z60.2 Problems related to living alone; I25.2 Old myocardial infarction; Z89.431 Acquired absence of right foot; Z89.432 Acquired absence of left foot; Z90.710 Acquired absence of both cervix and uterus; Z88.8 Allergy status to other drugs, medicaments and biological substances; Z79.899 Other long term (current) drug therapy; Z87.442 Personal history of urinary calculi
CPT/HCPCS: 36415; 80048; 80053; 80305; 80320; 81001; 83735; 84443; 85025; 87045; 87046; 87070; 87088; 87324; 87449; 89055; 96360; 97116; 97161; 99285; J1644; J1956; J3480; J7030

== ENCOUNTER 2018-03-31 06:26 | Observation (INO) | payer MEDICARE, MEDICAID ==
[~2018-03-31] VITALS: Ht 162.6 cm; Wt 50.0 kg
[~2018-03-31 06:26] MED LIST changes: -BUDE3CAP8 PO; +FLUC100T9 PO; +HYOS0.1277 SL; +LACT-28 PO
[2018-03-31] MEDS ORDERED: normal saline 1000ML IV soln IVB ONE ×2 (07:00→09:45)
[2018-03-31 07:39] LABS: BASOPHILS # (AUTO) 0.1 X10'3 (0-0.2); EOSINOPHILS # (AUTO) 0.2 X10'3 (0-0.9); EOSINOPHILS % (AUTO) 3.2 % (0-6); HEMATOCRIT 26.6 % (35.0-45.0); HEMOGLOBIN 8.6 g/dl (12.0-16.0); LYMPHOCYTES # (AUTO) 1.3 X10'3 (1.1-4.8); LYMPHOCYTES % (AUTO) 17.1 % (21-51); MEAN CORPUSCULAR HEMOGLOBIN 26.9 PG (27.0-31.0); MEAN CORPUSCULAR HGB CONC 32.4 % (33.0-36.5); MEAN CORPUSCULAR VOLUME 83.1 FL (78-98); MEAN PLATELET VOLUME 7.4 FL (7.4-10.4); MONOCYTES # (AUTO) 0.4 X10'3 (0-0.9); MONOCYTES % (AUTO) 5.4 % (2-12); NEUTROPHILS # (AUTO) 5.7 X10'3 (1.8-7.7); NEUTROPHILS % (AUTO) 73.3 % (42-75); PLATELET COUNT 441 X10'3 (140-440); RED CELL DISTRIBUTION WIDTH 15.7 % (11.5-14.5); WHITE BLOOD COUNT 7.7 X10'3 (4.5-11.0)
[2018-03-31 07:56] LABS: ALANINE AMINOTRANSFERASE 17 U/L (12-78); ALBUMIN 3.1 G/DL (3.4-5.0); ALBUMIN/GLOBULIN RATIO 0.7 (1.1-1.5); ALKALINE PHOSPHATASE 108 IU/L (46-116); ANION GAP 17 (8-16); ASPARTATE AMINO TRANSFERASE 13 U/L (10-37); BILIRUBIN,TOTAL 0.2 MG/DL (0.1-1.0); BLOOD UREA NITROGEN 58 MG/DL (7-18); BUN/CREATININE RATIO 21.2 (6.6-38.0); CALCIUM 8.7 MG/DL (8.5-10.1); CHLORIDE 106 MMOL/L (99-107); CREATININE 2.74 MG/DL (0.40-0.90); GLUCOSE 109 MG/DL (70-104); LIPASE 195 U/L (73-393); POTASSIUM 3.9 MMOL/L (3.5-5.1); SODIUM 140 MMOL/L (135-145); TOTAL CARBON DIOXIDE 17.2 MMOL/L (24-32); TOTAL PROTEIN 7.6 G/DL (6.4-8.2); eGFR 17 ML/MIN
[2018-03-31 08:01] LABS: CLARITY,URINE CLOUDY (Clear); COLOR,URINE YELLOW (Yellow); GLUCOSE, URINE NEGATIVE (Neg); KETONES,URINE NEGATIVE (Neg); LEUKOCYTE ESTERASE ,URINE LARGE (Neg); NITRITES, URINE NEGATIVE (Neg); OCCULT BLOOD,URINE SMALL (Neg); PROTEIN,URINE 30 mg/dl (Neg); UROBILINOGEN,URINE 0.2 E.U/dL (0.2-1.0)
[2018-03-31 08:06] LABS: UA COLLECTION TYPE CLN CATCH MIDSTREAM
[2018-03-31 08:07] LABS: BACTERIA,URINE 4+ /HPF (Neg); HYALINE CASTS 0-3 /LPF (NEGATIVE); MUCUS STRANDS NONE SEEN /LPF (Neg); SQUAMOUS EPITHELIAL CELL,UR FEW /LPF (FEW); TRANSITIONAL EPI CELLS,URINE FEW /HPF; WBC CLUMPS,URINE MODERATE /HPF (NEGATIVE); WBC,URINE TNTC /HPF (0-4)
[2018-03-31] MEDS ORDERED: HYDROcodone/acetaminophen 5mg/325mg tablet PO ONE (08:20)
[2018-03-31] MEDS ORDERED: CefTRIAXone/D5W-Rocephin 1gm 50 ML IV ONE (08:20)
[2018-03-31] MEDS ORDERED: LOPE2CAP14 PO (09:54)
[2018-03-31] MEDS ORDERED: ondansetron/PF 4mg/2ml inj IV PRN (10:50)
[2018-03-31] MEDS ORDERED: acetaminophen 325mg tablet PO PRN (10:50)
[2018-03-31] MEDS ORDERED: magnesium Cl slow-release 64mg tablet PO PRN (10:50)
[2018-03-31] MEDS ORDERED: potassium Cl 20 mEq SR tablet PO PRN ×2 (10:50)
[2018-03-31] MEDS ORDERED: magnesium 1gm/100ml D5W IVPB 100 ML IV PRN (10:50)
[2018-03-31] MEDS ORDERED: potassium Cl 40MEQ/NS 500ml 500 ML IV PRN ×2 (10:50)
[2018-03-31] MEDS ORDERED: magnesium 4gm in 100ml NS 100 ML IV PRN (10:50)
[2018-03-31] MEDS: normal saline 1000ml 1,000 ML IV SCH ×2 (11:06→19:35)
[2018-03-31 12:30] VITALS: BP 102/66
[2018-03-31] MEDS: acetaminophen 325mg tablet PO PRN (14:04)
[2018-03-31 18:00] VITALS: BP 151/88
[2018-03-31] MEDS: heparin, porcine 5000 units/ml vial SQ SCH (19:30)
[2018-03-31 19:32] LABS: CLARITY,URINE CLOUDY (Clear); COLOR,URINE YELLOW (Yellow); GLUCOSE, URINE NEGATIVE (Neg); KETONES,URINE NEGATIVE (Neg); LEUKOCYTE ESTERASE ,URINE LARGE (Neg); NITRITES, URINE POSITIVE (Neg); OCCULT BLOOD,URINE SMALL (Neg); PROTEIN,URINE TRACE mg/dl (Neg); UROBILINOGEN,URINE 0.2 E.U/dL (0.2-1.0)
[2018-03-31 19:38] LABS: UA COLLECTION TYPE CLN CATCH MIDSTREAM
[2018-03-31 19:39] LABS: BACTERIA,URINE 3+ /HPF (Neg); SQUAMOUS EPITHELIAL CELL,UR FEW /LPF (FEW); TOTAL PROTEIN,URINE RANDOM 61.6 MG/DL; WBC CLUMPS,URINE FEW /HPF (NEGATIVE); WBC,URINE TNTC /HPF (0-4)
[2018-03-31 20:30] LABS: UA EOSINOPHILS NO EOS /HPF
[2018-03-31] MEDS ORDERED: morphine 2 MG/ML inj. syringe IV PRN (20:35)
[2018-03-31] MEDS ORDERED: temazepam 15mg capsule PO PRN (20:35)
[2018-03-31 22:00] VITALS: BP 110/73
[2018-03-31] MEDS: HYDROcodone/acetaminophen 5mg/325mg tablet PO PRN (22:59)
[2018-04-01] MEDS: normal saline 1000ml 1,000 ML IV SCH ×2 (02:37→02:56)
[2018-04-01 06:00] VITALS: BP 107/71
[2018-04-01 06:46] LABS: BASOPHILS % (AUTO) 0.7 % (0-1); EOSINOPHILS # (AUTO) 0.2 X10'3 (0-0.9); EOSINOPHILS % (AUTO) 3.7 % (0-6); HEMATOCRIT 24.3 % (35.0-45.0); HEMOGLOBIN 7.7 g/dl (12.0-16.0); LYMPHOCYTES # (AUTO) 1.1 X10'3 (1.1-4.8); LYMPHOCYTES % (AUTO) 17.9 % (21-51); MEAN CORPUSCULAR HEMOGLOBIN 26.7 PG (27.0-31.0); MEAN CORPUSCULAR HGB CONC 31.8 % (33.0-36.5); MEAN PLATELET VOLUME 7.2 FL (7.4-10.4); MONOCYTES # (AUTO) 0.3 X10'3 (0-0.9); MONOCYTES % (AUTO) 5.3 % (2-12); NEUTROPHILS # (AUTO) 4.7 X10'3 (1.8-7.7); NEUTROPHILS % (AUTO) 72.4 % (42-75); PLATELET COUNT 398 X10'3 (140-440); RED BLOOD COUNT 2.89 X10'6 (4.20-5.60); RED CELL DISTRIBUTION WIDTH 15.4 % (11.5-14.5); WHITE BLOOD COUNT 6.4 X10'3 (4.5-11.0)
[2018-04-01 06:52] LABS: ALBUMIN 2.5 G/DL (3.4-5.0); BLOOD UREA NITROGEN 40 MG/DL (7-18); BUN/CREATININE RATIO 17.2 (6.6-38.0); CALCIUM 7.8 MG/DL (8.5-10.1); CREATININE 2.33 MG/DL (0.40-0.90); GLUCOSE 94 MG/DL (70-104); MAGNESIUM 1.5 MG/DL (1.5-2.4); POTASSIUM 3.5 MMOL/L (3.5-5.1); SODIUM 143 MMOL/L (135-145); TOTAL CARBON DIOXIDE 17.4 MMOL/L (24-32); eGFR 20 ML/MIN
[2018-04-01 07:09] LABS: ANION GAP 13 (8-16)
[2018-04-01 07:16] LABS: CHLORIDE 113 MMOL/L (99-107)
[2018-04-01] MEDS: K and/or MAG REPLACEMENT MC SCH (07:21)
[2018-04-01] MEDS: HYDROcodone/acetaminophen 5mg/325mg tablet PO PRN ×2 (07:21→16:59)
[2018-04-01] MEDS: pantoprazole 40mg Tablet.DR PO SCH (07:21)
[2018-04-01] MEDS: heparin, porcine 5000 units/ml vial SQ SCH ×2 (07:21→20:00)
[2018-04-01] MEDS: CefTRIAXone 2gm/D5W 50ml 50 ML IV SCH (07:21)
[2018-04-01 10:00] VITALS: BP 91/62
[2018-04-01] MEDS ORDERED: hydrOXYzine 10 MG tablet PO PRN (16:25)
[2018-04-01] MEDS: ascorbic acid 500mg tablet PO SCH (16:55)
[2018-04-01] MEDS: ferrous sulfate 325mg tablet PO SCH (16:56)
[2018-04-01] MEDS: temazepam 15mg capsule PO SCH ×2 (19:00→21:00)
[2018-04-01] MEDS: emollient combination-Eucerin 250 ML LOTION TP SCH (20:00)
[2018-04-01] MEDS: lactobacillus rhamnosus 10,000 MMU CELLS/CAPSULE PO SCH (20:00)
[2018-04-01 22:00] VITALS: BP 105/67
[2018-04-02 06:00] VITALS: BP 111/71
[2018-04-02 07:47] LABS: BASOPHILS # (AUTO) 0.1 X10'3 (0-0.2); BASOPHILS % (AUTO) 0.7 % (0-1); EOSINOPHILS # (AUTO) 0.3 X10'3 (0-0.9); EOSINOPHILS % (AUTO) 3.9 % (0-6); HEMATOCRIT 24.8 % (35.0-45.0); HEMOGLOBIN 7.9 g/dl (12.0-16.0); LYMPHOCYTES # (AUTO) 1.2 X10'3 (1.1-4.8); LYMPHOCYTES % (AUTO) 15.8 % (21-51); MEAN CORPUSCULAR HEMOGLOBIN 26.5 PG (27.0-31.0); MEAN CORPUSCULAR HGB CONC 31.7 % (33.0-36.5); MEAN CORPUSCULAR VOLUME 83.6 FL (78-98); MEAN PLATELET VOLUME 6.8 FL (7.4-10.4); MONOCYTES # (AUTO) 0.4 X10'3 (0-0.9); MONOCYTES % (AUTO) 5.1 % (2-12); NEUTROPHILS # (AUTO) 5.5 X10'3 (1.8-7.7); NEUTROPHILS % (AUTO) 74.5 % (42-75); PLATELET COUNT 409 X10'3 (140-440); RED BLOOD COUNT 2.97 X10'6 (4.20-5.60); RED CELL DISTRIBUTION WIDTH 15.9 % (11.5-14.5); WHITE BLOOD COUNT 7.4 X10'3 (4.5-11.0)
[2018-04-02] MEDS: sertraline 50mg tablet PO SCH (07:54)
[2018-04-02] MEDS: lactobacillus rhamnosus 10,000 MMU CELLS/CAPSULE PO SCH ×2 (07:54→20:52)
[2018-04-02] MEDS: pantoprazole 40mg Tablet.DR PO SCH (07:54)
[2018-04-02] MEDS: heparin, porcine 5000 units/ml vial SQ SCH ×2 (07:55→20:00)
[2018-04-02] MEDS: ferrous sulfate 325mg tablet PO SCH ×3 (07:55→18:06)
[2018-04-02] MEDS: ascorbic acid 500mg tablet PO SCH ×3 (07:55→18:06)
[2018-04-02] MEDS: CefTRIAXone 2gm/D5W 50ml 50 ML IV SCH (07:58)
[2018-04-02] MEDS: K and/or MAG REPLACEMENT MC SCH (08:00)
[2018-04-02] MEDS: emollient combination-Eucerin 250 ML LOTION TP SCH ×2 (08:00→20:00)
[2018-04-02 08:07] LABS: ALBUMIN 2.7 G/DL (3.4-5.0); ANION GAP 14 (8-16); BLOOD UREA NITROGEN 30 MG/DL (7-18); BUN/CREATININE RATIO 13.8 (6.6-38.0); CHLORIDE 112 MMOL/L (99-107); CREATININE 2.17 MG/DL (0.40-0.90); GLUCOSE 107 MG/DL (70-104); MAGNESIUM 1.4 MG/DL (1.5-2.4); POTASSIUM 3.7 MMOL/L (3.5-5.1); SODIUM 143 MMOL/L (135-145); TOTAL CARBON DIOXIDE 17.3 MMOL/L (24-32); eGFR 22 ML/MIN
[2018-04-02 10:00] VITALS: BP 111/66
[2018-04-02] MEDS: normal saline 1000ml 1,000 ML IV SCH ×2 (12:06→12:33)
[2018-04-02 18:00] VITALS: BP 121/80
[2018-04-02] MEDS: temazepam 15mg capsule PO SCH (20:52)
[2018-04-02 22:00] VITALS: BP 106/74
[2018-04-03] MEDS: normal saline 1000ml 1,000 ML IV SCH (01:53)
[2018-04-03] MEDS: acetaminophen 325mg tablet PO PRN (05:58)
[2018-04-03 06:00] VITALS: BP 125/84
[2018-04-03 06:04] LABS: BASOPHILS # (AUTO) 0.1 X10'3 (0-0.2); BASOPHILS % (AUTO) 1.7 % (0-1); EOSINOPHILS # (AUTO) 0.3 X10'3 (0-0.9); EOSINOPHILS % (AUTO) 4.3 % (0-6); HEMATOCRIT 24.2 % (35.0-45.0); HEMOGLOBIN 7.8 g/dl (12.0-16.0); LYMPHOCYTES # (AUTO) 1.3 X10'3 (1.1-4.8); LYMPHOCYTES % (AUTO) 18.8 % (21-51); MEAN CORPUSCULAR HEMOGLOBIN 26.9 PG (27.0-31.0); MEAN CORPUSCULAR HGB CONC 32.3 % (33.0-36.5); MEAN CORPUSCULAR VOLUME 83.3 FL (78-98); MEAN PLATELET VOLUME 7.2 FL (7.4-10.4); MONOCYTES # (AUTO) 0.3 X10'3 (0-0.9); MONOCYTES % (AUTO) 4.8 % (2-12); NEUTROPHILS # (AUTO) 4.8 X10'3 (1.8-7.7); NEUTROPHILS % (AUTO) 70.4 % (42-75); PLATELET COUNT 353 X10'3 (140-440); RED BLOOD COUNT 2.91 X10'6 (4.20-5.60); RED CELL DISTRIBUTION WIDTH 16.1 % (11.5-14.5); WHITE BLOOD COUNT 6.8 X10'3 (4.5-11.0)
[2018-04-03 06:12] LABS: ALBUMIN 2.5 G/DL (3.4-5.0); ANION GAP 14 (8-16); BLOOD UREA NITROGEN 24 MG/DL (7-18); BUN/CREATININE RATIO 10.9 (6.6-38.0); CALCIUM 7.8 MG/DL (8.5-10.1); CHLORIDE 112 MMOL/L (99-107); GLUCOSE 90 MG/DL (70-104); MAGNESIUM 1.5 MG/DL (1.5-2.4); POTASSIUM 3.3 MMOL/L (3.5-5.1); SODIUM 144 MMOL/L (135-145); TOTAL CARBON DIOXIDE 17.9 MMOL/L (24-32); eGFR 22 ML/MIN
[2018-04-03] MEDS: emollient combination-Eucerin 250 ML LOTION TP SCH (08:00)
[2018-04-03] MEDS: K and/or MAG REPLACEMENT MC SCH (08:00)
[2018-04-03] MEDS: heparin, porcine 5000 units/ml vial SQ SCH (08:00)
[2018-04-03] MEDS: sertraline 50mg tablet PO SCH (08:03)
[2018-04-03] MEDS: pantoprazole 40mg Tablet.DR PO SCH (08:03)
[2018-04-03] MEDS: ascorbic acid 500mg tablet PO SCH (08:03)
[2018-04-03] MEDS: lactobacillus rhamnosus 10,000 MMU CELLS/CAPSULE PO SCH (08:03)
[2018-04-03] MEDS: ferrous sulfate 325mg tablet PO SCH (08:03)
[2018-04-03] MEDS: CefTRIAXone 2gm/D5W 50ml 50 ML IV SCH (08:07)
[2018-04-03] MEDS: HYDROcodone/acetaminophen 5mg/325mg tablet PO PRN (08:21)
[2018-04-03 10:00] VITALS: BP 113/57
[2018-04-03] MEDS ORDERED: traMADol 50MG tablet PO PRN (10:45)
[2018-04-03] MEDS ORDERED: VITC500T PO (10:45)
[2018-04-03] MEDS ORDERED: ZOL50T PO (10:46)
[2018-04-03] MEDS ORDERED: FER325T PO (10:46)
[2018-04-03] MEDS ORDERED: SULF1TAB49 PO (10:46)
== END 2018-04-03 13:25 | disposition home or self-care (01) ==
LOC: ER 06:27 → ED HOLD 10:47 → EDBEDREQ 11:43 → ORTHO 4S 12:39
PROVIDERS: ADMIT Internal Medicine; ATTEND Internal Medicine
DX: N17.9 Acute kidney failure, unspecified (principal); N18.4 Chronic kidney disease, stage 4 (severe); D63.1 Anemia in chronic kidney disease; N39.0 Urinary tract infection, site not specified; B96.20 Unspecified Escherichia coli [E. coli] as the cause of diseases classified elsewhere; D50.9 Iron deficiency anemia, unspecified; F32.9 Major depressive disorder, single episode, unspecified; G47.00 Insomnia, unspecified; E87.2 Acidosis; I25.10 Atherosclerotic heart disease of native coronary artery without angina pectoris; F41.9 Anxiety disorder, unspecified; I25.2 Old myocardial infarction; J44.9 Chronic obstructive pulmonary disease, unspecified; N13.30 Unspecified hydronephrosis; N20.0 Calculus of kidney; G62.9 Polyneuropathy, unspecified; J45.909 Unspecified asthma, uncomplicated; G89.29 Other chronic pain; Z60.2 Problems related to living alone; Z90.710 Acquired absence of both cervix and uterus
CPT/HCPCS: 36415; 71045; 74176; 76775; 80048; 80053; 81001; 82570; 83605; 83690; 83735; 84156; 84300; 85025; 87040; 87045; 87046; 87070; 87077; 87088; 87186; 87207; 89055; 93005; 96365; 96366; 96372; 96375; 96376; 97162; 97530; 99285; G0378; J0696; J1644; J2270; J2405; J7030

== ENCOUNTER 2018-05-21 08:44 | Inpatient (IN) | payer MEDICARE, MEDICAID ==
[~2018-05-21] VITALS: Ht 172.7 cm; Wt 46.6 kg
[~2018-05-21 08:44] MED LIST changes: +FER325T PO; -FLUC100T9 PO; -HYOS0.1277 SL; -LACT-28 PO; -LOPE2CAP PO; +LOPE2CAP14 PO; +VITC500T PO; +ZOL50T PO
[2018-05-21 10:59] LABS: BASOPHILS # (AUTO) 0.1 X10'3 (0-0.2); EOSINOPHILS # (AUTO) 0.4 X10'3 (0-0.9); EOSINOPHILS % (AUTO) 4.4 % (0-6); HEMATOCRIT 35.2 % (35.0-45.0); HEMOGLOBIN 11.7 g/dl (12.0-16.0); LYMPHOCYTES # (AUTO) 1.6 X10'3 (1.1-4.8); MEAN CORPUSCULAR HEMOGLOBIN 27.9 PG (27.0-31.0); MEAN CORPUSCULAR HGB CONC 33.4 % (33.0-36.5); MEAN CORPUSCULAR VOLUME 83.6 FL (78-98); MEAN PLATELET VOLUME 7.6 FL (7.4-10.4); MONOCYTES # (AUTO) 0.5 X10'3 (0-0.9); MONOCYTES % (AUTO) 6.1 % (2-12); NEUTROPHILS # (AUTO) 6.2 X10'3 (1.8-7.7); NEUTROPHILS % (AUTO) 70.5 % (42-75); PLATELET COUNT 242 X10'3 (140-440); RED BLOOD COUNT 4.21 X10'6 (4.20-5.60); WHITE BLOOD COUNT 8.8 X10'3 (4.5-11.0)
[2018-05-21 11:06] LABS: CLARITY,URINE TURBID (Clear); COLOR,URINE STRAW (Yellow); GLUCOSE, URINE NEGATIVE (Neg); KETONES,URINE NEGATIVE (Neg); LEUKOCYTE ESTERASE ,URINE LARGE (Neg); NITRITES, URINE NEGATIVE (Neg); OCCULT BLOOD,URINE MODERATE (Neg); PROTEIN,URINE 100 mg/dl (Neg); UROBILINOGEN,URINE 0.2 E.U/dL (0.2-1.0)
[2018-05-21 11:07] LABS: UA COLLECTION TYPE CLN CATCH MIDSTREAM
[2018-05-21 11:12] LABS: URINE AMPHETAMINE SCREEN NEGATIVE (Neg); URINE BARBITUATE SCREEN NEGATIVE (Neg); URINE BENZODIAZEPINES SCREEN NEGATIVE (Neg); URINE CANNABINOID SCREEN NEGATIVE (Neg); URINE COCAINE SCREEN NEGATIVE (Neg); URINE METHADONE SCREEN NEGATIVE (Neg); URINE OPIATE SCREEN NEGATIVE (Neg); URINE PHENCYCLIDINE SCREEN NEGATIVE (Neg)
[2018-05-21 11:18] LABS: COARSE GRANULAR CAST 0-3 /LPF (NEGATIVE); MUCUS STRANDS NONE SEEN /LPF (Neg); SQUAMOUS EPITHELIAL CELL,UR MANY /LPF (FEW); WBC,URINE TNTC /HPF (0-4)
[2018-05-21 11:21] LABS: BACTERIA,URINE 4+ /HPF (Neg); RBC,URINE 0-2 /HPF (0-2)
[2018-05-21 11:23] LABS: ALANINE AMINOTRANSFERASE 28 U/L (12-78); ALBUMIN/GLOBULIN RATIO 0.9 (1.1-1.5); ALKALINE PHOSPHATASE 114 IU/L (46-116); ANION GAP 19 (8-16); ASPARTATE AMINO TRANSFERASE 16 U/L (10-37); BILIRUBIN,TOTAL 0.3 MG/DL (0.1-1.0); BLOOD UREA NITROGEN 51 MG/DL (7-18); BUN/CREATININE RATIO 15.3 (6.6-38.0); CALCIUM 8.5 MG/DL (8.5-10.1); CHLORIDE 105 MMOL/L (99-107); CREATININE 3.34 MG/DL (0.40-0.90); ETHANOL < 0.010 GM/DL (0.0-0.010); GLUCOSE 133 MG/DL (70-104); SODIUM 137 MMOL/L (135-145); TOTAL PROTEIN 8.4 G/DL (6.4-8.2); eGFR 13 ML/MIN
[2018-05-21 11:24] LABS: POTASSIUM 2.5 MMOL/L (3.5-5.1)
[2018-05-21 11:25] LABS: TOTAL CARBON DIOXIDE 13.3 MMOL/L (24-32)
[2018-05-21] MEDS: potassium 10mEq/100ml NS w/LIDOcaine (10mg/bag) IV SCH ×2 (11:30→12:30)
[2018-05-21] MEDS ORDERED: potassium Cl 20 mEq SR tablet PO PRN ×2 (11:45→12:00)
[2018-05-21] MEDS ORDERED: POTASSIUM 40MEQ/500ML NS *****PERIPHERAL LINE REPLACE IV PRN (11:55)
[2018-05-21] MEDS: potassium Cl 20 mEq SR tablet PO PRN ×2 (11:56→16:02)
[2018-05-21] MEDS ORDERED: acetaminophen 325mg tablet PO PRN (12:00)
[2018-05-21] MEDS ORDERED: mag hydrox/Alum hydrox/simeth 30ml oral suspension PO PRN (12:00)
[2018-05-21] MEDS ORDERED: magnesium hydroxide 30ml (MOM) UD suspension PO PRN (12:00)
[2018-05-21] MEDS ORDERED: potassium Cl 40MEQ/NS 500ml 500 ML IV PRN ×2 (12:00)
[2018-05-21] MEDS ORDERED: magnesium 4gm in 100ml NS 100 ML IV PRN (12:00)
[2018-05-21] MEDS: normal saline 1000ml 1,000 ML IV SCH ×2 (13:08→23:08)
[2018-05-21] MEDS ORDERED: FERR-29 PO (13:42)
[2018-05-21] MEDS ORDERED: SERT50TA10 PO (13:42)
[2018-05-21] MEDS: LIDOcaine 1% 30ml vial 5 ML in potassium Cl 40MEQ/NS 500ml 500 ML IV PRN ×2 (18:45→23:08)
[2018-05-21] MEDS: K and/or MAG REPLACEMENT MC SCH (18:45)
[2018-05-21] MEDS: heparin, porcine 5000 units/ml vial SQ SCH (20:00)
[2018-05-21] MEDS: loperamide 2mg capsule PO SCH (20:22)
[2018-05-21] MEDS: ferrous sulfate 325mg tablet PO SCH (20:23)
[2018-05-21] MEDS: ascorbic acid 500mg tablet PO SCH (20:23)
[2018-05-21] MEDS: temazepam 15mg capsule PO PRN (20:44)
[2018-05-22 01:17] VITALS: BP 85/60
[2018-05-22 05:36] LABS: BASOPHILS # (AUTO) 0.1 X10'3 (0-0.2); BASOPHILS % (AUTO) 0.9 % (0-1); EOSINOPHILS # (AUTO) 0.4 X10'3 (0-0.9); EOSINOPHILS % (AUTO) 5.5 % (0-6); HEMATOCRIT 29.8 % (35.0-45.0); LYMPHOCYTES # (AUTO) 1.3 X10'3 (1.1-4.8); MEAN CORPUSCULAR HEMOGLOBIN 28.2 PG (27.0-31.0); MEAN CORPUSCULAR HGB CONC 33.5 % (33.0-36.5); MEAN CORPUSCULAR VOLUME 84.1 FL (78-98); MONOCYTES # (AUTO) 0.6 X10'3 (0-0.9); MONOCYTES % (AUTO) 7.7 % (2-12); NEUTROPHILS # (AUTO) 5.5 X10'3 (1.8-7.7); NEUTROPHILS % (AUTO) 69.9 % (42-75); PLATELET COUNT 172 X10'3 (140-440); RED BLOOD COUNT 3.54 X10'6 (4.20-5.60); RED CELL DISTRIBUTION WIDTH 20.3 % (11.5-14.5); WHITE BLOOD COUNT 7.9 X10'3 (4.5-11.0)
[2018-05-22 05:54] LABS: ALANINE AMINOTRANSFERASE 20 U/L (12-78); ALBUMIN/GLOBULIN RATIO 0.9 (1.1-1.5); ALKALINE PHOSPHATASE 96 IU/L (46-116); ANION GAP 17 (8-16); ASPARTATE AMINO TRANSFERASE 15 U/L (10-37); BILIRUBIN,TOTAL 0.2 MG/DL (0.1-1.0); BLOOD UREA NITROGEN 41 MG/DL (7-18); CALCIUM 7.5 MG/DL (8.5-10.1); CHLORIDE 116 MMOL/L (99-107); CHOL/HDL RATIO 2.6 (0.00-4.99); CHOLESTEROL 97 MG/DL (0-200); CREATININE 2.74 MG/DL (0.40-0.90); GLUCOSE 94 MG/DL (70-104); HDL CHOLESTEROL 38 MG/DL (35-60); LDL CHOLESTEROL 46 MG/DL (50-100); MAGNESIUM 1.6 MG/DL (1.5-2.4); POTASSIUM 3.9 MMOL/L (3.5-5.1); SODIUM 144 MMOL/L (135-145); TOTAL PROTEIN 6.4 G/DL (6.4-8.2); TRIGLYCERIDES 81 MG/DL (20-135); eGFR 17 ML/MIN
[2018-05-22 06:30] LABS: TOTAL CARBON DIOXIDE 10.9 MMOL/L (24-32)
[2018-05-22 06:34] LABS: ANISOCYTOSIS 2+; BURR CELLS 1+; ELLIPTOCYTES 1+; PLATELET ESTIMATE NORMAL
[2018-05-22 07:00] VITALS: BP_SYST 91; BP_SYST 97; BP_DIAS 62; BP_DIAS 63
[2018-05-22] MEDS: K and/or MAG REPLACEMENT MC SCH (08:00)
[2018-05-22] MEDS: ferrous sulfate 325mg tablet PO SCH ×3 (09:41→20:12)
[2018-05-22] MEDS: ascorbic acid 500mg tablet PO SCH ×3 (09:41→20:12)
[2018-05-22] MEDS: loperamide 2mg capsule PO SCH ×2 (09:41→19:36)
[2018-05-22] MEDS: sertraline 50mg tablet PO SCH (09:41)
[2018-05-22] MEDS: heparin, porcine 5000 units/ml vial SQ SCH ×3 (09:42→19:43)
[2018-05-22 09:50] LABS: ABG BASE EXCESS -18.5 mmol/L (-2.0-3.0); ABG HCO3 8.4 mmol/L (22.0-26.0); ABG OXYGEN SATURATION 96.7 % (95-98); ABG PCO2 (T) 23.6 mmHg (32.0-45.0); ABG PH (T) 7.168 (7.350-7.450); ABG PO2 (T) 113.2 mmHg (83-108); ALLEN'S TEST Positive; FCOHb 0.3 % (0.5-1.5); FMetHb 0.3 % (0.3-1.12); FO2Hb 96.1 % (94-100)
[2018-05-22] MEDS: normal saline 1000ml 1,000 ML IV SCH (09:51)
[2018-05-22 12:00] VITALS: BP 102/74
[2018-05-22 12:01] LABS: C DIFF ANTIGEN NEGATIVE (NEGATIVE); C DIFF SPECIMEN=DIARRHEA? ACCEPTABLE; C DIFFICILE TOXINS A&B NEGATIVE (Neg)
[2018-05-22] MEDS: sodium bicarbonate (8.4%) inj. 150 MEQ in dextrose 5%-water 1,000 ML IV SCH ×3 (13:10→23:03)
[2018-05-22 19:50] VITALS: BP 92/66
[2018-05-22] MEDS: temazepam 15mg capsule PO PRN (20:11)
[2018-05-23 02:59] VITALS: BP 90/63
[2018-05-23 05:16] LABS: BASOPHILS # (AUTO) 0.1 X10'3 (0-0.2); BASOPHILS % (AUTO) 1.2 % (0-1); EOSINOPHILS # (AUTO) 0.3 X10'3 (0-0.9); EOSINOPHILS % (AUTO) 5.1 % (0-6); HEMATOCRIT 24.9 % (35.0-45.0); HEMOGLOBIN 8.3 g/dl (12.0-16.0); LYMPHOCYTES # (AUTO) 1.1 X10'3 (1.1-4.8); LYMPHOCYTES % (AUTO) 17.7 % (21-51); MEAN CORPUSCULAR HEMOGLOBIN 27.6 PG (27.0-31.0); MEAN CORPUSCULAR HGB CONC 33.3 % (33.0-36.5); MEAN CORPUSCULAR VOLUME 82.9 FL (78-98); MEAN PLATELET VOLUME 7.8 FL (7.4-10.4); MONOCYTES # (AUTO) 0.4 X10'3 (0-0.9); NEUTROPHILS # (AUTO) 4.4 X10'3 (1.8-7.7); PLATELET COUNT 147 X10'3 (140-440); RED CELL DISTRIBUTION WIDTH 20.1 % (11.5-14.5); WHITE BLOOD COUNT 6.4 X10'3 (4.5-11.0)
[2018-05-23 05:36] LABS: ALANINE AMINOTRANSFERASE 17 U/L (12-78); ALBUMIN 2.6 G/DL (3.4-5.0); ALBUMIN/GLOBULIN RATIO 0.9 (1.1-1.5); ALKALINE PHOSPHATASE 82 IU/L (46-116); ANION GAP 15 (8-16); ASPARTATE AMINO TRANSFERASE 13 U/L (10-37); BILIRUBIN,TOTAL 0.2 MG/DL (0.1-1.0); BLOOD UREA NITROGEN 29 MG/DL (7-18); BUN/CREATININE RATIO 13.7 (6.6-38.0); CALCIUM 7.4 MG/DL (8.5-10.1); CHLORIDE 108 MMOL/L (99-107); CREATININE 2.11 MG/DL (0.40-0.90); GLUCOSE 124 MG/DL (70-104); MAGNESIUM 1.4 MG/DL (1.5-2.4); SODIUM 142 MMOL/L (135-145); TOTAL CARBON DIOXIDE 19.1 MMOL/L (24-32); TOTAL PROTEIN 5.4 G/DL (6.4-8.2); eGFR 23 ML/MIN
[2018-05-23 05:50] LABS: POTASSIUM 2.5 MMOL/L (3.5-5.1)
[2018-05-23 07:00] VITALS: BP 87/60
[2018-05-23] MEDS: heparin, porcine 5000 units/ml vial SQ SCH ×3 (08:00→20:00)
[2018-05-23] MEDS: K and/or MAG REPLACEMENT MC SCH (08:26)
[2018-05-23] MEDS: ferrous sulfate 325mg tablet PO SCH ×3 (08:37→20:23)
[2018-05-23] MEDS: loperamide 2mg capsule PO SCH ×2 (08:37→20:23)
[2018-05-23] MEDS: sertraline 50mg tablet PO SCH (08:37)
[2018-05-23] MEDS: ascorbic acid 500mg tablet PO SCH ×3 (08:37→20:23)
[2018-05-23] MEDS: potassium Cl 20 mEq SR tablet PO PRN ×3 (08:37→20:23)
[2018-05-23] MEDS ORDERED: acetaminophen 325mg tablet PO PRN (08:45)
[2018-05-23 09:08] LABS: CLARITY,URINE CLOUDY (Clear); COLOR,URINE YELLOW (Yellow); GLUCOSE, URINE NEGATIVE (Neg); KETONES,URINE NEGATIVE (Neg); LEUKOCYTE ESTERASE ,URINE LARGE (Neg); NITRITES, URINE NEGATIVE (Neg); OCCULT BLOOD,URINE SMALL (Neg); PROTEIN,URINE NEGATIVE (Neg); UROBILINOGEN,URINE 0.2 E.U/dL (0.2-1.0)
[2018-05-23 09:12] LABS: UA COLLECTION TYPE CLN CATCH MIDSTREAM
[2018-05-23 09:14] LABS: BACTERIA,URINE 3+ /HPF (Neg); SQUAMOUS EPITHELIAL CELL,UR FEW /LPF (FEW)
[2018-05-23 09:15] LABS: WBC,URINE TNTC /HPF (0-4)
[2018-05-23 11:00] VITALS: BP 103/68
[2018-05-23] MEDS: sodium bicarbonate (8.4%) inj. 150 MEQ in dextrose 5%-water 1,000 ML IV SCH ×2 (11:15→15:52)
[2018-05-23 19:47] VITALS: BP 105/69
[2018-05-23] MEDS: temazepam 15mg capsule PO PRN (22:10)
[2018-05-23] MEDS ORDERED: normal saline 500ml IV soln 500 ML IV ONE (23:05)
[2018-05-24 00:06] VITALS: BP 102/66
[2018-05-24] MEDS: sodium bicarbonate (8.4%) inj. 150 MEQ in dextrose 5%-water 1,000 ML IV SCH (01:55)
[2018-05-24 02:23] LABS: BASOPHILS # (AUTO) 0.1 X10'3 (0-0.2); BASOPHILS % (AUTO) 0.9 % (0-1); EOSINOPHILS # (AUTO) 0.3 X10'3 (0-0.9); EOSINOPHILS % (AUTO) 4.9 % (0-6); HEMATOCRIT 25.1 % (35.0-45.0); HEMOGLOBIN 8.3 g/dl (12.0-16.0); LYMPHOCYTES # (AUTO) 1.6 X10'3 (1.1-4.8); LYMPHOCYTES % (AUTO) 25.8 % (21-51); MEAN CORPUSCULAR HEMOGLOBIN 27.9 PG (27.0-31.0); MEAN CORPUSCULAR HGB CONC 33.2 % (33.0-36.5); MEAN CORPUSCULAR VOLUME 84.1 FL (78-98); MEAN PLATELET VOLUME 7.4 FL (7.4-10.4); MONOCYTES # (AUTO) 0.4 X10'3 (0-0.9); NEUTROPHILS # (AUTO) 3.7 X10'3 (1.8-7.7); NEUTROPHILS % (AUTO) 61.4 % (42-75); PLATELET COUNT 156 X10'3 (140-440); RED BLOOD COUNT 2.98 X10'6 (4.20-5.60); WHITE BLOOD COUNT 6.1 X10'3 (4.5-11.0)
[2018-05-24 02:24] LABS: ALANINE AMINOTRANSFERASE 15 U/L (12-78); ALBUMIN 2.6 G/DL (3.4-5.0); ALKALINE PHOSPHATASE 74 IU/L (46-116); ANION GAP 6 (8-16); ASPARTATE AMINO TRANSFERASE 15 U/L (10-37); BILIRUBIN,TOTAL 0.2 MG/DL (0.1-1.0); BLOOD UREA NITROGEN 25 MG/DL (7-18); BUN/CREATININE RATIO 11.8 (6.6-38.0); CALCIUM 7.1 MG/DL (8.5-10.1); CHLORIDE 108 MMOL/L (99-107); CREATININE 2.12 MG/DL (0.40-0.90); GLUCOSE 114 MG/DL (70-104); MAGNESIUM 2.4 MG/DL (1.5-2.4); POTASSIUM 3.5 MMOL/L (3.5-5.1); SODIUM 141 MMOL/L (135-145); TOTAL CARBON DIOXIDE 27.4 MMOL/L (24-32); TOTAL PROTEIN 5.3 G/DL (6.4-8.2); eGFR 23 ML/MIN
[2018-05-24 08:00] VITALS: BP 91/61
[2018-05-24] MEDS: K and/or MAG REPLACEMENT MC SCH (08:00)
[2018-05-24] MEDS: heparin, porcine 5000 units/ml vial SQ SCH ×3 (08:00→20:00)
[2018-05-24] MEDS: sertraline 50mg tablet PO SCH (08:22)
[2018-05-24] MEDS: ascorbic acid 500mg tablet PO SCH ×3 (08:23→20:06)
[2018-05-24] MEDS: ferrous sulfate 325mg tablet PO SCH ×3 (08:23→20:06)
[2018-05-24] MEDS: loperamide 2mg capsule PO SCH ×2 (08:23→20:06)
[2018-05-24] MEDS: ondansetron/PF 4mg/2ml inj IV PRN ×2 (09:54→11:11)
[2018-05-24 11:00] VITALS: BP 93/60
[2018-05-24] MEDS ORDERED: lactose-reduced food (Ensure High Protein) 237ml bottle PO SCH (13:00)
[2018-05-24 20:00] VITALS: BP 92/65
[2018-05-24] MEDS: QUEtiapine 25mg tablet PO SCH (20:06)
[2018-05-24] MEDS: temazepam 15mg capsule PO PRN (20:30)
[2018-05-25] VITALS: BP 95/55
[2018-05-25 06:26] LABS: BASOPHILS # (AUTO) 0.1 X10'3 (0-0.2); EOSINOPHILS # (AUTO) 0.3 X10'3 (0-0.9); EOSINOPHILS % (AUTO) 5.4 % (0-6); HEMATOCRIT 25.6 % (35.0-45.0); HEMOGLOBIN 8.4 g/dl (12.0-16.0); LYMPHOCYTES # (AUTO) 1.4 X10'3 (1.1-4.8); LYMPHOCYTES % (AUTO) 21.2 % (21-51); MEAN CORPUSCULAR HGB CONC 32.7 % (33.0-36.5); MEAN CORPUSCULAR VOLUME 85.6 FL (78-98); MEAN PLATELET VOLUME 7.3 FL (7.4-10.4); MONOCYTES # (AUTO) 0.6 X10'3 (0-0.9); MONOCYTES % (AUTO) 9.1 % (2-12); NEUTROPHILS # (AUTO) 4.1 X10'3 (1.8-7.7); NEUTROPHILS % (AUTO) 63.3 % (42-75); PLATELET COUNT 145 X10'3 (140-440); RED BLOOD COUNT 2.99 X10'6 (4.20-5.60); RED CELL DISTRIBUTION WIDTH 20.4 % (11.5-14.5); WHITE BLOOD COUNT 6.4 X10'3 (4.5-11.0)
[2018-05-25 06:41] LABS: ALANINE AMINOTRANSFERASE 21 U/L (12-78); ALBUMIN 2.6 G/DL (3.4-5.0); ALBUMIN/GLOBULIN RATIO 0.9 (1.1-1.5); ALKALINE PHOSPHATASE 82 IU/L (46-116); ANION GAP 5 (8-16); ASPARTATE AMINO TRANSFERASE 17 U/L (10-37); BILIRUBIN,TOTAL 0.3 MG/DL (0.1-1.0); BLOOD UREA NITROGEN 24 MG/DL (7-18); BUN/CREATININE RATIO 11.1 (6.6-38.0); CALCIUM 7.6 MG/DL (8.5-10.1); CHLORIDE 105 MMOL/L (99-107); CREATININE 2.16 MG/DL (0.40-0.90); GLUCOSE 95 MG/DL (70-104); MAGNESIUM 2.1 MG/DL (1.5-2.4); POTASSIUM 3.5 MMOL/L (3.5-5.1); SODIUM 142 MMOL/L (135-145); TOTAL CARBON DIOXIDE 32.5 MMOL/L (24-32); TOTAL PROTEIN 5.5 G/DL (6.4-8.2); eGFR 22 ML/MIN
[2018-05-25 07:00] VITALS: BP 87/57
[2018-05-25] MEDS: ferrous sulfate 325mg tablet PO SCH ×3 (07:28→20:20)
[2018-05-25] MEDS: sertraline 50mg tablet PO SCH (07:28)
[2018-05-25] MEDS: loperamide 2mg capsule PO SCH ×2 (07:28→20:20)
[2018-05-25] MEDS: heparin, porcine 5000 units/ml vial SQ SCH ×2 (07:28→20:00)
[2018-05-25] MEDS: ascorbic acid 500mg tablet PO SCH ×3 (07:29→20:20)
[2018-05-25 07:51] LABS: ANISOCYTOSIS 2+; HYPOCHROMASIA 1+; PLATELET ESTIMATE NORMAL; POIKILOCYTOSIS FEW; POLYCHROMASIA FEW
[2018-05-25 07:52] LABS: MICROCYTOSIS 1+
[2018-05-25] MEDS: K and/or MAG REPLACEMENT MC SCH (08:00)
[2018-05-25 11:00] VITALS: BP 96/69
[2018-05-25] MEDS: psyllium seed 3.4 gm packet PO SCH (14:07)
[2018-05-25 20:00] VITALS: BP 89/68
[2018-05-25] MEDS: QUEtiapine 25mg tablet PO SCH (20:20)
[2018-05-25] MEDS: temazepam 15mg capsule PO PRN (20:27)
[2018-05-26] VITALS: BP 92/57
[2018-05-26 05:50] LABS: BASOPHILS % (AUTO) 0.6 % (0-1); EOSINOPHILS # (AUTO) 0.3 X10'3 (0-0.9); EOSINOPHILS % (AUTO) 5.6 % (0-6); HEMOGLOBIN 8.2 g/dl (12.0-16.0); LYMPHOCYTES # (AUTO) 1.7 X10'3 (1.1-4.8); LYMPHOCYTES % (AUTO) 29.5 % (21-51); MEAN CORPUSCULAR HEMOGLOBIN 27.8 PG (27.0-31.0); MEAN CORPUSCULAR HGB CONC 32.7 % (33.0-36.5); MEAN PLATELET VOLUME 7.5 FL (7.4-10.4); MONOCYTES # (AUTO) 0.4 X10'3 (0-0.9); MONOCYTES % (AUTO) 7.7 % (2-12); NEUTROPHILS # (AUTO) 3.2 X10'3 (1.8-7.7); NEUTROPHILS % (AUTO) 56.6 % (42-75); PLATELET COUNT 141 X10'3 (140-440); RED BLOOD COUNT 2.94 X10'6 (4.20-5.60); RED CELL DISTRIBUTION WIDTH 19.5 % (11.5-14.5); WHITE BLOOD COUNT 5.6 X10'3 (4.5-11.0)
[2018-05-26 05:51] LABS: ALANINE AMINOTRANSFERASE 22 U/L (12-78); ALBUMIN 2.6 G/DL (3.4-5.0); ALBUMIN/GLOBULIN RATIO 0.9 (1.1-1.5); ALKALINE PHOSPHATASE 89 IU/L (46-116); ANION GAP 9 (8-16); ASPARTATE AMINO TRANSFERASE 16 U/L (10-37); BILIRUBIN,TOTAL 0.3 MG/DL (0.1-1.0); BLOOD UREA NITROGEN 31 MG/DL (7-18); BUN/CREATININE RATIO 14.6 (6.6-38.0); CALCIUM 7.5 MG/DL (8.5-10.1); CHLORIDE 104 MMOL/L (99-107); CREATININE 2.13 MG/DL (0.40-0.90); GLUCOSE 86 MG/DL (70-104); POTASSIUM 3.7 MMOL/L (3.5-5.1); SODIUM 142 MMOL/L (135-145); TOTAL CARBON DIOXIDE 29.3 MMOL/L (24-32); TOTAL PROTEIN 5.6 G/DL (6.4-8.2); eGFR 23 ML/MIN
[2018-05-26] MEDS: heparin, porcine 5000 units/ml vial SQ SCH (08:00)
[2018-05-26] MEDS: psyllium seed 3.4 gm packet PO SCH (08:00)
[2018-05-26] MEDS: K and/or MAG REPLACEMENT MC SCH (08:00)
[2018-05-26] MEDS: sertraline 50mg tablet PO SCH (08:40)
[2018-05-26] MEDS: loperamide 2mg capsule PO SCH (08:40)
[2018-05-26] MEDS: ferrous sulfate 325mg tablet PO SCH (08:41)
[2018-05-26] MEDS: ascorbic acid 500mg tablet PO SCH (08:41)
[2018-05-26] MEDS ORDERED: QUET25TA34 PO (10:27)
[2018-05-26] MEDS ORDERED: DIPH1TAB PO (10:27)
[2018-05-26] MEDS ORDERED: SERT50TA10 PO (10:27)
[2018-05-26] MEDS ORDERED: PSYL1PAC10 PO (10:27)
== END 2018-05-26 11:17 | disposition home or self-care (01) | DRG 683 ==
LOC: ER 08:44 → ED HOLD 12:00 → SUR 3N 05-22 00:40
PROVIDERS: ADMIT Family Medicine; ATTEND Family Medicine
DX: N17.9 Acute kidney failure, unspecified (principal); Z68.1 Body mass index [BMI] 19.9 or less, adult; E44.0 Moderate protein-calorie malnutrition; R45.851 Suicidal ideations; F32.2 Major depressive disorder, single episode, severe without psychotic features; N18.4 Chronic kidney disease, stage 4 (severe); E87.6 Hypokalemia; R62.7 Adult failure to thrive; N25.89 Other disorders resulting from impaired renal tubular function; F29 Unspecified psychosis not due to a substance or known physiological condition; F41.8 Other specified anxiety disorders; Z60.2 Problems related to living alone; G47.00 Insomnia, unspecified; G62.9 Polyneuropathy, unspecified; G89.29 Other chronic pain; D64.9 Anemia, unspecified; N13.2 Hydronephrosis with renal and ureteral calculous obstruction; E87.8 Other disorders of electrolyte and fluid balance, not elsewhere classified; I25.10 Atherosclerotic heart disease of native coronary artery without angina pectoris; I95.89 Other hypotension; J44.9 Chronic obstructive pulmonary disease, unspecified; K58.0 Irritable bowel syndrome with diarrhea; I25.2 Old myocardial infarction; Z91.19 Patient's noncompliance with other medical treatment and regimen; Z90.710 Acquired absence of both cervix and uterus; Z91.018 Allergy to other foods; Z79.899 Other long term (current) drug therapy; Z87.440 Personal history of urinary (tract) infections; Z85.42 Personal history of malignant neoplasm of other parts of uterus; Z87.442 Personal history of urinary calculi
CPT/HCPCS: 36415; 36600; 74176; 76775; 80053; 80061; 80305; 80320; 81001; 82803; 83735; 84132; 84443; 85018; 85025; 87070; 87077; 87088; 87186; 87324; 87449; 99285; G0378; J1644; J2405; J3475; J3480; J3490; J7030

== ENCOUNTER 2018-07-16 15:00 | Emergency (ER) | payer MEDICARE, MEDICAID ==
[~2018-07-16] VITALS: Ht 172.7 cm; Wt 68.2 kg
[~2018-07-16 15:00] MED LIST changes: +DIPH1TAB PO; -FER325T PO; +FERR-29 PO; +PSYL1PAC10 PO; +QUET25TA34 PO; +SERT50TA10 PO; -ZOL50T PO
--- NOTE | 2018-07-16 15:15 | NUR ---
PT BROUGHT INTO TRIAGE AND IMMEDIATELY STATES HAS TO GO TO BATHROOM.
[2018-07-16] MEDS ORDERED: normal saline 1000ML IV soln IVB ONE ×2 (15:25→16:05)
[2018-07-16] MEDS ORDERED: ondansetron/PF 4mg/2ml inj IV ONE ×2 (15:25→16:05)
[2018-07-16 15:45] LABS: BASOPHILS # (AUTO) 0.1 X10'3 (0-0.2); BASOPHILS % (AUTO) 2.4 % (0-1); EOSINOPHILS # (AUTO) 0.4 X10'3 (0-0.9); EOSINOPHILS % (AUTO) 5.9 % (0-6); HEMATOCRIT 28.9 % (35.0-45.0); HEMOGLOBIN 9.5 g/dl (12.0-16.0); LYMPHOCYTES # (AUTO) 1.3 X10'3 (1.1-4.8); LYMPHOCYTES % (AUTO) 21.9 % (21-51); MEAN CORPUSCULAR HEMOGLOBIN 29.1 PG (27.0-31.0); MEAN CORPUSCULAR VOLUME 88.2 FL (78-98); MEAN PLATELET VOLUME 7.2 FL (7.4-10.4); MONOCYTES # (AUTO) 0.5 X10'3 (0-0.9); MONOCYTES % (AUTO) 8.4 % (2-12); NEUTROPHILS # (AUTO) 3.7 X10'3 (1.8-7.7); NEUTROPHILS % (AUTO) 61.4 % (42-75); PLATELET COUNT 285 X10'3 (140-440); RED BLOOD COUNT 3.27 X10'6 (4.20-5.60); RED CELL DISTRIBUTION WIDTH 16.1 % (11.5-14.5)
[2018-07-16 16:02] LABS: ALANINE AMINOTRANSFERASE 26 U/L (12-78); ALBUMIN 3.5 G/DL (3.4-5.0); ALBUMIN/GLOBULIN RATIO 0.9 (1.1-1.5); ALKALINE PHOSPHATASE 92 IU/L (46-116); ANION GAP 15 (8-16); ASPARTATE AMINO TRANSFERASE 18 U/L (10-37); BILIRUBIN,TOTAL 0.2 MG/DL (0.1-1.0); BLOOD UREA NITROGEN 53 MG/DL (7-18); BUN/CREATININE RATIO 22.6 (6.6-38.0); CALCIUM 8.6 MG/DL (8.5-10.1); CHLORIDE 108 MMOL/L (99-107); CREATININE 2.35 MG/DL (0.40-0.90); GLUCOSE 93 MG/DL (70-104); POTASSIUM 4.4 MMOL/L (3.5-5.1); SODIUM 141 MMOL/L (135-145); TOTAL CARBON DIOXIDE 17.8 MMOL/L (24-32); TOTAL PROTEIN 7.5 G/DL (6.4-8.2); eGFR 20 ML/MIN
--- NOTE | 2018-07-16 16:03 | NUR ---
patient given additional warm blankets.
--- NOTE | 2018-07-16 17:46 | NUR ---
shannon called for patient.
[2018-07-16 17:49] VITALS: BP 100/59
== END 2018-07-16 18:19 | disposition home or self-care (01) ==
LOC: ER 15:00
DX: A08.4 Viral intestinal infection, unspecified (principal); D53.9 Nutritional anemia, unspecified; E86.0 Dehydration; N18.9 Chronic kidney disease, unspecified; I25.10 Atherosclerotic heart disease of native coronary artery without angina pectoris; I25.2 Old myocardial infarction; J44.9 Chronic obstructive pulmonary disease, unspecified; G89.29 Other chronic pain; Z90.710 Acquired absence of both cervix and uterus; Z91.011 Allergy to milk products; Z79.899 Other long term (current) drug therapy; Z60.2 Problems related to living alone
CPT/HCPCS: 36415; 80053; 85025; 96361; 96374; 99284; J2405; J7030